=== PATIENT | male | born 1940 | race Caucasian/White ===

== ENCOUNTER 2019-11-09 16:43 | Inpatient (IN) | payer OTHER, BC ==
--- NOTE | 2019-11-09 17:03 | PDOC ---
Rapid Medical Evaluation Chief Complaint: CVA/TIA Medical Evaluation: Allergies Allergy/AdvReac Type Severity Reaction Status Date / Time No Known Allergies Allergy Verified 11/09/19 16:54 11/09/19 17:01 Pt c/o : on coumadin, hit head last week, today was not speaking clearly on phone, hx dm did not eat x 1 day, took bgm before coming but after eating a pop tart, slight headache now Pt on brief exam: vss, a o x3 Pt ordered for : labs, urine, head ct Pt to proceed to the ED 11/09/19 17:03 Discharge Disposition - Diagnosis Head injury - Referrals - Patient Instructions - Post Discharge Activity
--- NOTE | 2019-11-09 18:08 | PDOC ---
History of Present Illness - General Chief Complaint: CVA/TIA Stated Complaint: SENT BY PCP Time Seen by Provider: 11/09/19 17:39 History Source: Patient Exam Limitations: No Limitations - History of Present Illness Initial Comments: 11/09/19 18:03 79 yo M PMH HTN, HLD, NIDDM, DVT 10 years ago on coumadin (last checked 2019), TAVR 2 years ago, BPH, presenting after episode of aphasia. 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 Episode began around 1300 and lasted approximately 10 minutes. Patient now completely back to baseline. Notes that patient tripped and fell one week ago, hit head, no LOC, did not get any workup at that time. Him Assistant is Dr. Dhruv Haines. PCP is Dr. Flynn Beverly. Patient with multiple other chronic complaints: sciatica down L leg for 3 weeks , mild intermittent 3/10 headache, diarrhea yesterday. Past History - Past Medical History Allergies/Adverse Reactions: Allergies Allergy/AdvReac Type Severity Reaction Status Date / Time No Known Allergies Allergy Verified 11/09/19 16:54 Home Medications: Ambulatory Orders Finasteride 5 mg PO DAILY 11/09/19 Furosemide [Lasix -] 20 mg PO DAILY 11/09/19 Lisinopril [Prinivil -] 40 mg PO DAILY 11/09/19 Montelukast Na [Singulair -] 10 mg PO DAILY 11/09/19 Pantoprazole Sodium 40 mg PO DAILY 11/09/19 Pantoprazole Sodium [Protonix -] 40 mg PO DAILY 11/09/19 Rosuvastatin Calcium 5 mg PO DAILY 11/09/19 Ubidecarenone [Coq-10] 100 mg PO DAILY 11/09/19 Warfarin Sodium [Coumadin] 6 mg PO DAILY 11/09/19 metFORMIN HCL [Metformin ER Osmotic] 1,000 mg PO DAILY 11/09/19 Cardiac Disorders: Yes (TAVER Valve) COPD: No Diabetes: Yes HTN: Yes Hypercholesterolemia: Yes - Surgical History Cardiac Surgery: Yes - Psycho Social/Smoking Cessation Hx Smoking History: Former smoker Have you smoked in the past 12 months: No Information on smoking cessation initiated: No Hx Alcohol Use: No Drug/Substance Use Hx: No Review of Systems - Review of Systems Comments:: 11/09/19 18:07 GENERAL/CONSTITUTIONAL: denies fever, chills, diaphoresis, generalized weakness , malaise, loss of appetite, weight change HEAD, EYES, EARS, NOSE AND THROAT: denies rhinorrhea, nasal congestion, throat pain, throat swelling, difficulty swallowing, mouth swelling, ear pain, eye pain , visual changes NEUROLOGIC: endorses mild 3/10 headache and episode of aphasia, now resolved. Denies focal weakness or paresthesias, dizziness, unsteady gait, seizure, mental status changes, bladder or bowel incontinence CARDIOVASCULAR: denies chest pain, syncope, palpitations, irregular heart rate, lightheadedness, peripheral edema RESPIRATORY: denies cough, shortness of breath, dyspnea with exertion, orthopnea , wheezing, stridor, hemoptysis GASTROINTESTINAL: endorses one episode of diarrhea yesterday. Denies abdominal pain, abdominal distension, nausea, vomiting, constipation, melena, hematochezia GENITOURINARY: denies dysuria, frequency, urgency, hesitancy, hematuria, flank pain, genital pain MUSCULOSKELETAL: denies myalgia, arthralgia, joint swelling, back pain, neck pain SKIN: denies rash, itching, pallor HEMATOLOGIC/IMMUNOLOGIC: denies easy bleeding, easy bruising, lymphadenopathy, frequent infections ENDOCRINE: denies unexplained weight gain, unexplained weight loss, heat intolerance, cold intolerance PSYCHIATRIC: denies anxiety, depression, suicidal or homicidal ideation, hallucinations. *Physical Exam - Vital Signs Last Vital Signs Temp Pulse Resp BP Pulse Ox 97.7 F 88 18 172/89 H 95 11/09/19 16:57 11/09/19 16:57 11/09/19 16:57 11/09/19 16:57 11/09/19 16:57 - Physical Exam 11/09/19 18:08 GENERAL: Awake, alert, and fully oriented, in no acute distress. HEAD: Normal with no signs of trauma. EYES: Pupils equal, round and reactive to light, extraocular movements intact, sclera anicteric, conjunctiva clear. No lid lag. EARS, NOSE, THROAT: Ears normal, nares patent, oropharynx clear without exudates NECK: Normal range of motion, supple without lymphadenopathy, JVD, or masses. LUNGS: Breath sounds equal, clear to auscultation bilaterally. No wheezes, and no crackles. No accessory muscle use. HEART: Regular rate and rhythm, normal S1 and S2 without murmur, rub or gallop. ABDOMEN: Soft, nontender, non-distended, normoactive bowel sounds, negative guarding, negative rebound, no masses. MUSCULOSKELETAL: Normal range of motion at all joints. No bony deformities or tenderness. No CVA tenderness. UPPER EXTREMITIES: 2+ pulses, warm, well-perfused. No cyanosis. No clubbing. Cap refill <2 seconds. No peripheral edema. LOWER EXTREMITIES: 2+ pulses, warm, well-perfused. No calf tenderness. No peripheral edema. NEUROLOGICAL: Cranial nerves II-XII intact, 5/5 strength, SILT in all extremities, FTN intact. Normal speech. PSYCHIATRIC: Cooperative. Good eye contact. Appropriate mood and affect. SKIN: Warm, dry, normal turgor, no rashes or lesions noted. Critical Care Time/MDM Note - Medical Decision Making Note: 11/09/19 18:10 Concern for potential TIA v ICH. - CT head - CBC, CMP - EKG, trop - CXR - coags - admit 11/09/19 18:25 EKG normal sinus at 72 bpm. Poor baseline quality. T wave inversions in 1, AVL, V5-V6. We do not have prior EKGs. 11/09/19 19:14 CXR with poor inspiratory effort, L base atelectasis, R infrahilar nodularity v mass. Discussed CXR results with patient, who states that he has known about the nodule for at least a year and it has been followed by his PCP. Will get CT chest to better characterize, admit for TIA. 11/09/19 19:[address] Abreu, who recommends admission for MRI and lipid panel tests. Discharge - Discharge Information Problems reviewed: Yes Clinical Impression/Diagnosis: Transient ischemic attack - Follow up/Referral - Patient Discharge Instructions - Post Discharge Activity
[2019-11-09 18:26] LABS: BASO % 1.2 % (0-2.0); HEMATOCRIT 37.7 % (35.4-49); HEMOGLOBIN 12.6 GM/dL (11.7-16.9); LYMPH % 23.6 % (8-40); MCH 28.5 pg (25.7-33.7); MCHC 33.3 g/dl (32.0-35.9); MEAN CELL VOLUME 85.6 fl (80-96); MEAN PLT VOLUME 8.8 fl (7.5-11.1); MONO % 9.2 % (3.8-10.2); PLATELET COUNT 235 K/MM3 (134-434); RBC 4.41 M/mm3 (4.00-5.60); WHITE BLOOD COUNT 7.8 K/mm3 (4.0-10.0)
[2019-11-09 18:41] LABS: INR 1.91 (0.83-1.09); PROTHROMBIN TIME (PATIENT) 22.7 SEC (9.7-13.0)
--- NOTE | 2019-11-09 18:54 | PDOC ---
Attending Attestation - Resident Resident Name: Samuel Sun - ED Attending Attestation I have performed the following: I have examined & evaluated the patient, The case was reviewed & discussed with the resident, I agree w/resident's findings & plan, Exceptions are as noted - HPI HPI: 11/09/19 19:00 79 yo male h/o prior dvt, obesity htn hld dm here with tia like sxs. pt was call his doctor to set up appoitnment with pain management and suddently developed slurred speech. pt states lasted only few minutes, then back to baseline. called his daughter who told to come to ED. called pcp. who set up appointment for nuerology but recommended ed evaluation. no ann . did have fall were he was working on a boat recently fell backward january of hit his head. does have sciatica, chronic back pain but no new weakness currently. no cp no sob. - Physicial Exam PE: 11/09/19 19:02 awake alert lungs clear bilat heart rrr no mrg abd soft nt nd ext wwp no edema. no calf tenderness. alert oriented x 3. speech clear. CN II - XII intact. 5/5 all four ext. NIH stroke scale zero. - Medical Decision Making 11/09/19 19:03 79 yo male mult med problesm here with c/o slurred speech, lasted only brief period, now at baseline. concerning for TIA plan ct head. r/o ich as recent trauma. labs ekg . pt currently on coumadin. likley admit to telemetry Heart Score/ECG Review #1 General ECG Interpretation: Sinus Rhythm, Normal Rate (72), Normal Intervals, No acute ischemic changes Compared to previous ECG there are: Previous ECG unavail (TWI I, AVL, V5 - V6) NIH Stroke Scale - Initial Evaluation Level of consciousness: Alert Ask patient the month and their age: Answers both correctly Ask patient to open & close eyes; make fist and let go: Obeys both correctly Best gaze (horizontal eye movement): Normal Visual field testing: No visual field loss Facial paresis (Show teeth/raise eyebrows/close eyes tight): Normal symmetrical movement Motor Function: Left Arm: Normal Motor Function: Right Arm: Normal (extends arm 90 (or 45) degrees for 10 seconds without drift Motor Function: Left Leg: Normal (extends leg 30 degrees for 5 seconds without drift) Motor Function: Right Leg: Normal (extends leg 30 degrees for 5 seconds without drift) Limb Ataxia: No ataxia Sensory(Use pinprick test arms,legs,trunk,face/side to side): Normal Best language (Describe picture, name items, read sentences): No Aphasia Dysarthria (read several words): Normal articulation Extinction and Inattention: No abnormality - Total Score NIH Stroke Scale Score: 0
[2019-11-09 18:58] LABS: ALBUMIN 3.8 g/dl (3.4-5.0); ALK PHOS 62 U/L (45-117); ANION GAP 6 MMOL/L (8-16); BILIRUBIN,TOTAL 0.3 mg/dL (0.2-1); BLOOD UREA NITROGEN 18.7 mg/dL (7-18); CALCIUM 8.9 mg/dL (8.5-10.1); CHLORIDE 108 mmol/L (98-107); CO2 27 mmol/L (21-32); CREATININE 1.4 mg/dL (0.55-1.3); GLUCOSE,RANDOM 130 mg/dL (74-106); POTASSIUM 3.8 mmol/L (3.5-5.1); SGOT/AST 15 U/L (15-37); SGPT/ALT 19 U/L (13-61); SODIUM 142 mmol/L (136-145); TOT PROT 6.7 g/dl (6.4-8.2)
[2019-11-09 20:11] LABS: URINE APPEARANCE CLEAR; URINE BILIRUBIN NEGATIVE (NEGATIVE); URINE COLOR YELLOW; URINE GLUCOSE (UA) NEGATIVE (NEGATIVE); URINE KETONE NEGATIVE (NEGATIVE); URINE LEUK ESTERASE NEGATIVE (NEGATIVE); URINE NITRITE NEGATIVE (NEGATIVE); URINE PROTEIN NEGATIVE (NEGATIVE); URINE UROBILINOGEN 0.2 mg/dL (0.2-1.0)
[2019-11-09] MEDS ORDERED: ASPIRIN 81 MG CHEWABLE TABLETS PO STA (21:01)
[2019-11-09] MEDS ORDERED: ATORVASTATIN CA 80 MG TABLET (FP) PO STA (21:46)
--- NOTE | 2019-11-09 21:52 | HP ---
<Lilly Bryant - Last Filed: 11/09/19 21:52> CHIEF COMPLAINT: dysarthria PCP: Physician @ [facility] HISTORY OF PRESENT ILLNESS: 79 y.o. M PMH HTN, HLD, DM2, DVT history 10 years ago (has been on coumadin since tis time), BPH, TAVR presenting s/p 10 minute episode of aphasia. The patient states this afternoon he was having severe sciatic pain which prompted him to call his PCP. While on the phone he became dysarthric w/ expressive aphasia--altered ability to produce language but clear comprehension. Although his dysarthria resolved he decided to come to the ED. On arrival to ED the patient is feeling well, no dysarthria, but forgetful of some words ( at bedside, says this is altered from his usual). NIHSS 1, for L lateral gaze deficit. The patient is compliant with all mediations and checks his INR weekly with home device. ER course was notable for: (1) EKG showing T wave inversions lead I, AVL, V5, V6 (2) CT head negative (3) Hypertensive 172/89 Recent Travel: denies PAST MEDICAL HISTORY: as per hpi PAST SURGICAL HISTORY: TAVR, b/l cataract surgery Social History: Smoking: quit 30 yrs ago Alcohol: denies Drugs: denies Allergies No Known Allergies Allergy (Verified 11/09/19 16:54) Family hx: diabetes in both parents HOME MEDICATIONS: Home Medications Medication Instructions Recorded Finasteride 5 mg PO DAILY 11/09/19 Furosemide [Lasix -] 20 mg PO DAILY 11/09/19 Lisinopril [Prinivil -] 40 mg PO DAILY 11/09/19 Montelukast Na [Singulair -] 10 mg PO DAILY 11/09/19 Pantoprazole Sodium 40 mg PO DAILY 11/09/19 Pantoprazole Sodium [Protonix -] 40 mg PO DAILY 11/09/19 Rosuvastatin Calcium 5 mg PO DAILY 11/09/19 Ubidecarenone [Coq-10] 100 mg PO DAILY 11/09/19 Warfarin Sodium [Coumadin] 6 mg PO DAILY 11/09/19 metFORMIN HCL [Metformin ER 1,000 mg PO DAILY 11/09/19 Osmotic] REVIEW OF SYSTEMS CONSTITUTIONAL: Absent: fever, chills, diaphoresis, generalized weakness, malaise, loss of appetite, weight change HEENT: Absent: rhinorrhea, nasal congestion, throat pain, throat swelling, difficulty swallowing, mouth swelling, ear pain, eye pain, visual changes CARDIOVASCULAR: Absent: chest pain, syncope, palpitations, irregular heart rate, lightheadedness , peripheral edema RESPIRATORY: Absent: cough, shortness of breath, dyspnea with exertion, orthopnea, wheezing, stridor, hemoptysis GASTROINTESTINAL: Absent: abdominal pain, abdominal distension, nausea, vomiting, diarrhea, constipation, melena, hematochezia GENITOURINARY: Absent: dysuria, frequency, urgency, hesitancy, hematuria, flank pain, genital pain MUSCULOSKELETAL: Absent: myalgia, arthralgia, joint swelling, back pain, neck pain SKIN: Absent: rash, itching, pallor HEMATOLOGIC/IMMUNOLOGIC: Absent: easy bleeding, easy bruising, lymphadenopathy, frequent infections ENDOCRINE: Absent: unexplained weight gain, unexplained weight loss, heat intolerance, cold intolerance NEUROLOGIC: Absent: headache, focal weakness or paresthesias, dizziness, unsteady gait, seizure, mental status changes, bladder or bowel incontinence PSYCHIATRIC: Absent: anxiety, depression, suicidal or homicidal ideation, hallucinations. PHYSICAL EXAMINATION Vital Signs - 24 hr 11/09/19 11/09/19 16:57 20:14 Temperature 97.7 F Pulse Rate 88 Respiratory 18 20 Rate Blood Pressure 172/89 H Blood Pressure 163/117 H [Left Arm] O2 Sat by Pulse 95 95 Oximetry (%) GENERAL: Awake, alert, and fully oriented, in no acute distress. HEENT: NCAT. No JVD. Sclera anicteric. LUNGS: Breath sounds equal, clear to auscultation bilaterally. No wheezes, and no crackles. No accessory muscle use. HEART: Regular rate and rhythm, normal S1 and S2 without murmurs. No carotid bruits. ABDOMEN: Soft, nontender, not distended, normoactive bowel sounds. EXTREMITIES: 2+ pulses, warm, well-perfused. No peripheral edema. NEUROLOGICAL: Cranial nerves II-XII intact. Good handgrip strength. Motor 5/5 b /l UE & LE. Sensory intact b/l UE & LE. PSYCHIATRIC: Cooperative. Good eye contact. Appropriate mood and affect. SKIN: Warm, dry, normal turgor. Laboratory Results - last 24 hr Laboratory Last Values WBC 7.8 K/mm3 (4.0-10.0) 11/09/19 18:00 RBC 4.41 M/mm3 (4.00-5.60) 11/09/19 18:00 Hgb 12.6 GM/dL (11.7-16.9) 11/09/19 18:00 Hct 37.7 % (35.4-49) 11/09/19 18:00 MCV 85.6 fl (80-96) 11/09/19 18:00 MCH 28.5 pg (25.7-33.7) 11/09/19 18:00 MCHC 33.3 g/dl (32.0-35.9) 11/09/19 18:00 RDW 14.0 % (11.9-15.9) 11/09/19 18:00 Plt Count 235 K/MM3 (134-434) 11/09/19 18:00 MPV 8.8 fl (7.5-11.1) 11/09/19 18:00 Absolute Neuts (auto) 4.9 K/mm3 (1.5-8.0) 11/09/19 18:00 Neutrophils % 62.0 % (42.8-82.8) 11/09/19 18:00 Lymphocytes % 23.6 % (8-40) 11/09/19 18:00 Monocytes % 9.2 % (3.8-10.2) 11/09/19 18:00 Eosinophils % 4.0 % (0-4.5) 11/09/19 18:00 Basophils % 1.2 % (0-2.0) 11/09/19 18:00 Nucleated RBC % 0 % (0-0) 11/09/19 18:00 PT with INR 22.70 SEC (9.7-13.0) H 11/09/19 18:00 INR 1.91 (0.83-1.09) H 11/09/19 18:00 Sodium 142 mmol/L (136-145) 11/09/19 18:00 Potassium 3.8 mmol/L (3.5-5.1) 11/09/19 18:00 Chloride 108 mmol/L (98-107) H 11/09/19 18:00 Carbon Dioxide 27 mmol/L (21-32) 11/09/19 18:00 Anion Gap 6 MMOL/L (8-16) L 11/09/19 18:00 BUN 18.7 mg/dL (7-18) H 11/09/19 18:00 Creatinine 1.4 mg/dL (0.55-1.3) H 11/09/19 18:00 Est GFR (CKD-EPI)AfAm 54.61 11/09/19 18:00 Est GFR (CKD-EPI)NonAf 47.12 11/09/19 18:00 Random Glucose 130 mg/dL (74-106) H 11/09/19 18:00 Calcium 8.9 mg/dL (8.5-10.1) 11/09/19 18:00 Total Bilirubin 0.3 mg/dL (0.2-1) 11/09/19 18:00 AST 15 U/L (15-37) 11/09/19 18:00 ALT 19 U/L (13-61) 11/09/19 18:00 Alkaline Phosphatase 62 U/L (45-117) 11/09/19 18:00 Creatine Kinase 86 U/L (26-308) 11/09/19 18:00 Troponin I < 0.02 ng/ml (0.00-0.05) 11/09/19 18:00 Total Protein 6.7 g/dl (6.4-8.2) 11/09/19 18:00 Albumin 3.8 g/dl (3.4-5.0) 11/09/19 18:00 Urine Color Yellow 11/09/19 19:10 Urine Appearance Clear 11/09/19 19:10 Urine pH 5.0 (5.0-8.0) 11/09/19 19:10 Ur Specific Jackson 1.015 (1.010-1.035) 11/09/19 19:10 Urine Protein Negative (NEGATIVE) 11/09/19 19:10 Urine Glucose (UA) Negative (NEGATIVE) 11/09/19 19:10 Urine Ketones Negative (NEGATIVE) 11/09/19 19:10 Urine Blood Negative (NEGATIVE) 11/09/19 19:10 Urine Nitrite Negative (NEGATIVE) 11/09/19 19:10 Urine Bilirubin Negative (NEGATIVE) 11/09/19 19:10 Urine Urobilinogen 0.2 mg/dL (0.2-1.0) 11/09/19 19:10 Ur Leukocyte Esterase Negative (NEGATIVE) 11/09/19 19:10 ASSESSMENT/PLAN: 79 y.o. M PMH HTN, HLD, DM2, DVT history 10 years ago (has been on coumadin since tis time), BPH, TAVR presenting for TIA. #TIA -CT head shows no ischemic changes -f/u MRI brain w/o contrast -allow permissive HTN-- holding home anti HTN meds -f/u carotid duplex -Patient had recent echo 3 months ago at cardiologists office @ [facility]-- f/u records -Neurology consulted, Dr. Abreu -ASA 81mg, patient is on coumadin -high intensity statin -trend trops, neg x1 -speech & swallow eval -physical therapy requested #HTN -holding home anti HTN meds -monitor BP, allow permissive htn #HLD -holding home statin -starting atorvastatin 80mg daily -advised low fat diet -pinking machine operator consulted #Diabetes mellitus 2 -holding home oral agents -ISS -BGMs ACHS #BPH -continue home finasteride #PPX -DVT: on coumadin 6mg daily, INR today 1.91 -GI: protonix 40mg daily #FEN -no standing fluids -trend lytes replete prn -sodium controlled, low fat diet #Dispo -admit to stroke unit ATTENDING PHYSICIAN STATEMENT I saw and evaluated the patient. I reviewed the resident's note and discussed the case with the resident. I agree with the resident's findings and plan as documented. SUBJECTIVE: OBJECTIVE: ASSESSMENT AND PLAN: <Brad Bates - Last Filed: 11/09/19 23:12> CHIEF COMPLAINT: PCP: HISTORY OF PRESENT ILLNESS: ER course was notable for: (1) (2) (3) Recent Travel: PAST MEDICAL HISTORY: PAST SURGICAL HISTORY: Social History: Smoking: Alcohol: Drugs: Allergies No Known Allergies Allergy (Verified 11/09/19 16:54) HOME MEDICATIONS: Home Medications Medication Instructions Recorded Finasteride 5 mg PO DAILY 11/09/19 Furosemide [Lasix -] 20 mg PO DAILY 11/09/19 Lisinopril [Prinivil -] 40 mg PO DAILY 11/09/19 Montelukast Na [Singulair -] 10 mg PO DAILY 11/09/19 Pantoprazole Sodium 40 mg PO DAILY 11/09/19 Pantoprazole Sodium [Protonix -] 40 mg PO DAILY 11/09/19 Rosuvastatin Calcium 5 mg PO DAILY 11/09/19 Ubidecarenone [Coq-10] 100 mg PO DAILY 11/09/19 Warfarin Sodium [Coumadin] 6 mg PO DAILY 11/09/19 metFORMIN HCL [Metformin ER 1,000 mg PO DAILY 11/09/19 Osmotic] REVIEW OF SYSTEMS CONSTITUTIONAL: Absent: fever, chills, diaphoresis, generalized weakness, malaise, loss of appetite, weight change HEENT: Absent: rhinorrhea, nasal congestion, throat pain, throat swelling, difficulty swallowing, mouth swelling, ear pain, eye pain, visual changes CARDIOVASCULAR: Absent: chest pain, syncope, palpitations, irregular heart rate, lightheadedness , peripheral edema RESPIRATORY: Absent: cough, shortness of breath, dyspnea with exertion, orthopnea, wheezing, stridor, hemoptysis GASTROINTESTINAL: Absent: abdominal pain, abdominal distension, nausea, vomiting, diarrhea, constipation, melena, hematochezia GENITOURINARY: Absent: dysuria, frequency, urgency, hesitancy, hematuria, flank pain, genital pain MUSCULOSKELETAL: Absent: myalgia, arthralgia, joint swelling, back pain, neck pain SKIN: Absent: rash, itching, pallor HEMATOLOGIC/IMMUNOLOGIC: Absent: easy bleeding, easy bruising, lymphadenopathy, frequent infections ENDOCRINE: Absent: unexplained weight gain, unexplained weight loss, heat intolerance, cold intolerance NEUROLOGIC: Absent: headache, focal weakness or paresthesias, dizziness, unsteady gait, seizure, mental status changes, bladder or bowel incontinence PSYCHIATRIC: Absent: anxiety, depression, suicidal or homicidal ideation, hallucinations. PHYSICAL EXAMINATION Vital Signs - 24 hr 11/09/19 11/09/19 16:57 20:14 Temperature 97.7 F Pulse Rate 88 Respiratory 18 20 Rate Blood Pressure 172/89 H Blood Pressure 163/117 H [Left Arm] O2 Sat by Pulse 95 95 Oximetry (%) GENERAL: Awake, alert, and fully oriented, in no acute distress. HEAD: Normal with no signs of trauma. EYES: Pupils equal, round and reactive to light, extraocular movements intact, sclera anicteric, conjunctiva clear. No lid lag. EARS, NOSE, THROAT: Ears normal, nares patent, oropharynx clear without exudates. Moist mucous membranes. NECK: Normal range of motion, supple without lymphadenopathy, JVD, or masses. LUNGS: Breath sounds equal, clear to auscultation bilaterally. No wheezes, and no crackles. No accessory muscle use. HEART: Regular rate and rhythm, normal S1 and S2 without murmur, rub or gallop. ABDOMEN: Soft, nontender, not distended, normoactive bowel sounds, no guarding, no rebound, no masses. No hepatomegaly or splenomegaly. MUSCULOSKELETAL: Normal range of motion at all joints. No bony deformities or tenderness. No CVA tenderness. UPPER EXTREMITIES: 2+ pulses, warm, well-perfused. No cyanosis. No clubbing. No peripheral edema. LOWER EXTREMITIES: 2+ pulses, warm, well-perfused. No calf tenderness. No peripheral edema. NEUROLOGICAL: Cranial nerves II-XII intact. Normal speech. Normal gait. PSYCHIATRIC: Cooperative. Good eye contact. Appropriate mood and affect. SKIN: Warm, dry, normal turgor, no rashes or lesions noted, normal capillary refill. Laboratory Results - last 24 hr 11/09/19 11/09/19 11/09/19 18:00 18:00 18:00 WBC 7.8 RBC 4.41 Hgb 12.6 Hct 37.7 MCV 85.6 MCH 28.5 MCHC 33.3 RDW 14.0 Plt Count 235 MPV 8.8 Absolute Neuts (auto) 4.9 Neutrophils % 62.0 Lymphocytes % 23.6 Monocytes % 9.2 Eosinophils % 4.0 Basophils % 1.2 Nucleated RBC % 0 PT with INR 22.70 H INR 1.91 H Sodium 142 Potassium 3.8 Chloride 108 H Carbon Dioxide 27 Anion Gap 6 L BUN 18.7 H Creatinine 1.4 H Est GFR (CKD-EPI)AfAm 54.61 Est GFR (CKD-EPI)NonAf 47.12 POC Glucometer Random Glucose 130 H Calcium 8.9 Total Bilirubin 0.3 AST 15 ALT 19 Alkaline Phosphatase 62 Creatine Kinase 86 Troponin I < 0.02 Total Protein 6.7 Albumin 3.8 Urine Color Urine Appearance Urine pH Ur Specific Jackson Urine Protein Urine Glucose (UA) Urine Ketones Urine Blood Urine Nitrite Urine Bilirubin Urine Urobilinogen Ur Leukocyte Esterase 11/09/19 11/09/19 19:10 22:43 WBC RBC Hgb Hct MCV MCH MCHC RDW Plt Count MPV Absolute Neuts (auto) Neutrophils % Lymphocytes % Monocytes % Eosinophils % Basophils % Nucleated RBC % PT with INR INR Sodium Potassium Chloride Carbon Dioxide Anion Gap BUN Creatinine Est GFR (CKD-EPI)AfAm Est GFR (CKD-EPI)NonAf POC Glucometer 112 Random Glucose Calcium Total Bilirubin AST ALT Alkaline Phosphatase Creatine Kinase Troponin I Total Protein Albumin Urine Color Yellow Urine Appearance Clear Urine pH 5.0 Ur Specific Jackson 1.015 Urine Protein Negative Urine Glucose (UA) Negative Urine Ketones Negative Urine Blood Negative Urine Nitrite Negative Urine Bilirubin Negative Urine Urobilinogen 0.2 Ur Leukocyte Esterase Negative ASSESSMENT/PLAN: Visit type - Emergency Visit Emergency Visit: Yes ED Registration Date: 11/09/19 Care time: The patient presented to the Emergency Department on the above date and was hospitalized for further evaluation of their emergent condition. - New Patient This patient is new to me today: Yes Date on this admission: 11/09/19 - Critical Care Critical Care patient: No ATTENDING PHYSICIAN STATEMENT I saw and evaluated the patient with resident staff I reviewed the resident's note and discussed the case with the resident. I agree with the resident's findings and plan as documented. SUBJECTIVE: 79 y.o. M PMH HTN, HLD, DM2, DVT on coumadin, BPH, TAVR presented to ED with slurred speech and aphasia which lasted for 10 minutes. He was talking to his PCP over the phone and all of a sudden his speech became slurred and became aphasic. also noticed his symptoms. His PCP recommended to go to ED for further evaluation. He denies chest pain, SOB, nausea,vomiting, fever. OBJECTIVE: Vital Signs - 24 hr 11/09/19 11/09/19 16:57 20:14 Temperature 97.7 F Pulse Rate 88 Respiratory 18 20 Rate Blood Pressure 172/89 H Blood Pressure 163/117 H [Left Arm] O2 Sat by Pulse 95 95 Oximetry (%) GENERAL: Normal built, NAD HEENT: NCAT, EOMI, MEGAN, Sclera, conjunctiva normal LUNGS: Breath sounds equal,, b/l cleat HEART: RRR, s1s2+, No MRG ABDOMEN: Soft, nontender, not distended, +BS EXTREMITIES: 2+ pulses, warm, well-perfused. No peripheral edema. NEUROLOGICAL: Cranial nerves II-XII intact. Good handgrip strength. Motor 5/5 b /l UE & LE. Sensory intact b/l UE & LE. SKIN: Warm, dry, normal turgor. ASSESSMENT AND PLAN: TIA r/o stroke Admit to stroke unit MRA in AM Carotid Duplex Neurology was consulted by ED over the phone. official consult in Am HTN- uncontrolled. Hold BP meds for now. Allow permissive HTN Resume home meds including Coumadin ECHO as per MRI as it was done recently 3 months ago trend 1 more troponin. Rest of the plan as per resident's note dictated by me Brad Bates MD 11/09/2019
[2019-11-09] MEDS ORDERED: ATORVASTATIN CA 80 MG TABLET (FP) ONE (21:56)
[2019-11-09] MEDS ORDERED: ASPIRIN 81 MG CHEWABLE TABLETS ONE (21:56)
--- NOTE | 2019-11-09 22:40 | PN.NIHSS ---
NIH Stroke Scale - Initial Evaluation Level of consciousness: Alert Ask patient the month and their age: Answers both correctly Ask patient to open & close eyes; make fist and let go: Obeys both correctly Best gaze (horizontal eye movement): Partial gaze palsy Visual field testing: No visual field loss Facial paresis (Show teeth/raise eyebrows/close eyes tight): Normal symmetrical movement Motor Function: Left Arm: Normal Motor Function: Right Arm: Normal (extends arm 90 (or 45) degrees for 10 seconds without drift Motor Function: Left Leg: Normal (extends leg 30 degrees for 5 seconds without drift) Motor Function: Right Leg: Normal (extends leg 30 degrees for 5 seconds without drift) Limb Ataxia: No ataxia Sensory(Use pinprick test arms,legs,trunk,face/side to side): Normal Best language (Describe picture, name items, read sentences): No Aphasia Dysarthria (read several words): Normal articulation Extinction and Inattention: No abnormality - Total Score NIH Stroke Scale Score: 1
[2019-11-09] MEDS: INSULIN SLIDING SCALE (NOVOLOG) 1 VIAL SQ SCH (22:49)
[2019-11-10] MEDS ORDERED: INSULIN (NOVOLOG) ASPART 100 UNITS/ML 10ML VIAL ONE (05:57)
[2019-11-10] MEDS: INSULIN SLIDING SCALE (NOVOLOG) 1 VIAL SQ SCH ×4 (06:00→22:03)
[2019-11-10 07:39] LABS: INR 2.04 (0.83-1.09); PROTHROMBIN TIME (PATIENT) 24.3 SEC (9.7-13.0)
[2019-11-10 08:07] LABS: BASO % 1.1 % (0-2.0); EOS % 3.6 % (0-4.5); HEMATOCRIT 38.2 % (35.4-49); HEMOGLOBIN 12.8 GM/dL (11.7-16.9); LYMPH % 21.8 % (8-40); MCH 28.8 pg (25.7-33.7); MCHC 33.6 g/dl (32.0-35.9); MEAN CELL VOLUME 85.7 fl (80-96); MEAN PLT VOLUME 8.8 fl (7.5-11.1); MONO % 7.9 % (3.8-10.2); NEUT % 65.6 % (42.8-82.8); PLATELET COUNT 232 K/MM3 (134-434); RBC 4.46 M/mm3 (4.00-5.60); RDW 13.9 % (11.9-15.9); WHITE BLOOD COUNT 7.8 K/mm3 (4.0-10.0)
--- NOTE | 2019-11-10 09:12 | PN ---
Progress Note (short form) - Note Progress Note: Neurology CHIEF COMPLAINT: dysarthria PCP: Physician @ [facility] HISTORY OF PRESENT ILLNESS: 79 y.o. M PMH HTN, HLD, DM2, DVT history 10 years ago (has been on coumadin since tis time), BPH, TAVR presented s/p 10 minute episode of aphasia. The patient stated on day of admission he was having severe sciatic pain which prompted him to call his PCP. While on the phone he became dysarthric w/ expressive aphasia--altered ability to produce language but clear comprehension. Although his dysarthria resolved he decided to come to the ED. On arrival to ED the patient was feeling well, no dysarthria, but forgetful of some words ( at bedside, said this is altered from his usual). NIHSS 1, for L lateral gaze deficit. The patient is compliant with all mediations and checks his INR weekly with home device. Head CT performed and showed no acute pathology. Carotid Ultrasound completed and demonstrated no evidence of carotid artery stenosis. MRI of brain reviewed and showed no evidence of acute or subacute infarction. 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 Discussed this in detail with patient and his daughter who is at bedside. He does not take a daily aspirin but is on anticoagulation. I be hesitant to add antiplatelet to his regimen at this point since he did not have a new infarct and is already on anticoagulation with increased risk of bleeding. Lipid profile reviewed, LDL 89, remains on low-dose statin. They were reassured that MRI was negative and that his speech is back to baseline. discussed stroke risk factor management and optimization. Recent Travel: denies PAST MEDICAL HISTORY: as per hpi PAST SURGICAL HISTORY: TAVR, b/l cataract surgery Family History: Diabetes in both parents Social History: Smoking: quit 30 yrs ago Alcohol: denies Drugs: denies REVIEW OF SYSTEMS CONSTITUTIONAL: Absent: fever, chills, diaphoresis, generalized weakness, malaise, loss of appetite, weight change HEENT: Absent: rhinorrhea, nasal congestion, throat pain, throat swelling, difficulty swallowing, mouth swelling, ear pain, eye pain, visual changes CARDIOVASCULAR: Absent: chest pain, syncope, palpitations, irregular heart rate, lightheadedness , peripheral edema RESPIRATORY: Absent: cough, shortness of breath, dyspnea with exertion, orthopnea, wheezing, stridor, hemoptysis GASTROINTESTINAL: Absent: abdominal pain, abdominal distension, nausea, vomiting, diarrhea, constipation, melena, hematochezia GENITOURINARY: Absent: dysuria, frequency, urgency, hesitancy, hematuria, flank pain, genital pain MUSCULOSKELETAL: Absent: myalgia, arthralgia, joint swelling, back pain, neck pain SKIN: Absent: rash, itching, pallor HEMATOLOGIC/IMMUNOLOGIC: Absent: easy bleeding, easy bruising, lymphadenopathy, frequent infections ENDOCRINE: Absent: unexplained weight gain, unexplained weight loss, heat intolerance, cold intolerance NEUROLOGIC: Absent: headache, focal weakness or paresthesias, dizziness, unsteady gait, seizure, mental status changes, bladder or bowel incontinence PSYCHIATRIC: Absent: anxiety, depression, suicidal or homicidal ideation, hallucinations. Allergies No Known Allergies Allergy (Verified 11/09/19 16:54) HOME MEDICATIONS: Home Medications Medication Instructions Recorded Finasteride 5 mg PO DAILY 11/09/19 Furosemide [Lasix -] 20 mg PO DAILY 11/09/19 Lisinopril [Prinivil -] 40 mg PO DAILY 11/09/19 Montelukast Na [Singulair -] 10 mg PO DAILY 11/09/19 Pantoprazole Sodium 40 mg PO DAILY 11/09/19 Pantoprazole Sodium [Protonix -] 40 mg PO DAILY 11/09/19 Rosuvastatin Calcium 5 mg PO DAILY 11/09/19 Ubidecarenone [Coq-10] 100 mg PO DAILY 11/09/19 Warfarin Sodium [Coumadin] 6 mg PO DAILY 11/09/19 metFORMIN HCL [Metformin ER 1,000 mg PO DAILY 11/09/19 Osmotic] Active Medications Atorvastatin Calcium (Lipitor -) 80 mg PO HS [facility] Finasteride (Proscar -) 5 mg PO DAILY [facility] Furosemide (Lasix -) 20 mg PO DAILY [facility] Insulin Aspart (Novolog Vial Sliding Scale -) 1 vial SQ ACHS [facility]; Protocol Last Admin: 11/10/19 06:00 Dose: 2 units Montelukast Sodium (Singulair -) 10 mg PO HS [facility] Non-Formulary Medication (Ubidecarenone [Coq-10]) 100 mg PO DAILY [facility] Pantoprazole Sodium (Protonix -) 40 mg PO DAILY [facility] Warfarin Sodium (Coumadin -) 6 mg PO DAILY@1800 [facility] PHYSICAL EXAMINATION Vital Signs Period Temp Pulse Resp BP Sys/Puentes Pulse Ox Last 24 Hr 97.7 F-98.2 F 81-88 18-20 163-178/75-117 95-99 GENERAL: Awake, alert, and fully oriented, in no acute distress. HEENT: NCAT. No JVD. Sclera anicteric. LUNGS: Breath sounds equal, clear to auscultation bilaterally. No wheezes, and no crackles. No accessory muscle use. HEART: Regular rate and rhythm, normal S1 and S2 without murmurs. No carotid bruits. ABDOMEN: Soft, nontender, not distended, normoactive bowel sounds. EXTREMITIES: 2+ pulses, warm, well-perfused. No peripheral edema. NEUROLOGICAL: Cranial nerves II-XII intact.normal speech, no dysarthria or aphasia. Good handgrip strength. Motor 5/5 b/l UE & LE. Sensory intact b/l UE & LE. PSYCHIATRIC: Cooperative. Good eye contact. Appropriate mood and affect. SKIN: Warm, dry, normal turgor. CBCD WBC 7.8 K/mm3 (4.0-10.0) 11/10/19 05:30 RBC 4.46 M/mm3 (4.00-5.60) 11/10/19 05:30 Hgb 12.8 GM/dL (11.7-16.9) 11/10/19 05:30 Hct 38.2 % (35.4-49) 11/10/19 05:30 MCV 85.7 fl (80-96) 11/10/19 05:30 MCHC 33.6 g/dl (32.0-35.9) 11/10/19 05:30 RDW 13.9 % (11.9-15.9) 11/10/19 05:30 Plt Count 232 K/MM3 (134-434) 11/10/19 05:30 MPV 8.8 fl (7.5-11.1) 11/10/19 05:30 CMP Sodium 142 mmol/L (136-145) 11/09/19 18:00 Potassium 3.8 mmol/L (3.5-5.1) 11/09/19 18:00 Chloride 108 mmol/L (98-107) H 11/09/19 18:00 Carbon Dioxide 27 mmol/L (21-32) 11/09/19 18:00 Anion Gap 6 MMOL/L (8-16) L 11/09/19 18:00 BUN 18.7 mg/dL (7-18) H 11/09/19 18:00 Creatinine 1.4 mg/dL (0.55-1.3) H 11/09/19 18:00 Random Glucose 130 mg/dL (74-106) H 11/09/19 18:00 Calcium 8.9 mg/dL (8.5-10.1) 11/09/19 18:00 Total Bilirubin 0.3 mg/dL (0.2-1) 11/09/19 18:00 AST 15 U/L (15-37) 11/09/19 18:00 ALT 19 U/L (13-61) 11/09/19 18:00 Alkaline Phosphatase 62 U/L (45-117) 11/09/19 18:00 Total Protein 6.7 g/dl (6.4-8.2) 11/09/19 18:00 Albumin 3.8 g/dl (3.4-5.0) 11/09/19 18:00 CARDIAC ENZYMES Creatine Kinase 86 U/L (26-308) 11/09/19 18:00 Troponin I < 0.02 ng/ml (0.00-0.05) 11/09/19 18:00 ASSESSMENT/PLAN: 79 y.o. M PMH HTN, HLD, DM2, DVT history 10 years ago (has been on coumadin since tis time), BPH, TAVR presented s/p 10 minute episode of aphasia. The patient stated on day of admission he was having severe sciatic pain which prompted him to call his PCP. While on the phone he became dysarthric w/ expressive aphasia--altered ability to produce language but clear comprehension. Although his dysarthria resolved he decided to come to the ED. On arrival to ED the patient was feeling well, no dysarthria, but forgetful of some words ( at bedside, said this is altered from his usual). NIHSS 1, for L lateral gaze deficit. The patient is compliant with all mediations and checks his INR weekly with home device. Head CT performed and showed no acute pathology. Carotid Ultrasound completed and demonstrated no evidence of carotid artery stenosis. MRI of brain reviewed and showed no evidence of acute or subacute infarction. 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 Discussed this in detail with patient and his daughter who is at bedside. He does not take a daily aspirin but is on anticoagulation. I be hesitant to add antiplatelet to his regimen at this point since he did not have a new infarct and is already on anticoagulation with increased risk of bleeding. Lipid profile reviewed, LDL 89, remains on low-dose statin. They were reassured that MRI was negative and that his speech is back to baseline. discussed stroke risk factor management and optimization. monitor blood pressure , maintain less than 140/90 as outpatient. Take glycemic control discussed and recommended. Continue monitor lipid profile, continue statin, goal LDLless than 100 and ideally close to 70. Remains on anticoagulation for DVT, avoid falls or head trauma.
[2019-11-10 09:20] LABS: BILIRUBIN,TOTAL 0.6 mg/dL (0.2-1); BLOOD UREA NITROGEN 18.4 mg/dL (7-18); CALCIUM 9.2 mg/dL (8.5-10.1); CREATININE 1.3 mg/dL (0.55-1.3); POTASSIUM 3.8 mmol/L (3.5-5.1); TOT PROT 7.2 g/dl (6.4-8.2)
[2019-11-10] MEDS ORDERED: PATIENT'S OWN MEDICATION (NON-FORMULARY) (Ubidecarenone [Coq-10] 100 MG) PO SCH (10:00)
[2019-11-10] MEDS ORDERED: FUROSEMIDE 20 MG TABLET (FP) PO SCH (10:00)
[2019-11-10] MEDS: PANTOPRAZOLE 40 MG TABLET PO SCH (10:21)
[2019-11-10] MEDS: FINASTERIDE 5 MG TABLET (FP) PO SCH (10:21)
--- NOTE | 2019-11-10 13:11 | ECHO ---
Name: DESHAWN RODRIGUEZ Exam:Adult Echocardiogram Study Date: 11/10/2019 10:33 AM Age: 79 yrs Reason For Study: s/p stroke examine for thrombi or valvular disease MMode/2D Measurements & Calculations IVSd: 1.4 cm Ao root diam: 2.4 cm LVIDd: 3.1 cm LA dimension: 4.6 cm LVIDs: 2.2 cm LVPWd: 1.3 cm LVPWs: 1.5 cm EDV(Teich): 39.3 ml ESV(Teich): 15.7 ml LVOT diam: 2.1 cm LAV (MOD-bp): 97.9 ml RV S Moshe: 10.8 cm/sec Doppler Measurements & Calculations MV E max moshe: 83.9 cm/sec Ao V2 max: 241.7 cm/sec MV A max moshe: 143.8 cm/sec Ao max P.0 mmHg MV E/A: 0.58 Ao V2 mean: 199.6 cm/sec MV dec time: 0.19 sec Ao mean P.9 mmHg Ao V2 VTI: 49.8 cm EFRAIN(V,D): 1.8 cm2 LV V1 max P.5 mmHg PA V2 max: 110.1 cm/sec LV V1 max: 127.3 cm/sec PA max P.9 mmHg Med Peak E' Moshe: 4.2 cm/sec Med E/e': 19.8 Lat Peak E' Moshe: 7.4 cm/sec Lat E/e': 11.3 Procedure A complete two-dimensional transthoracic echocardiogram was performed (2D, M-mode, Doppler and color flow Doppler). Left Ventricle There is moderate concentric left ventricular hypertrophy. The left ventricular ejection fraction is normal. Ejection Fraction = 60-65%. The left ventricular wall motion is normal. Right Ventricle The right ventricle is normal in size and function. Atria Normal left and right atrial size and function. Mitral Valve There is mild mitral annular calcification. There is no mitral regurgitation noted. Tricuspid Valve No tricuspid regurgitation. Aortic Valve Mild valvular aortic stenosis. No aortic regurgitation is present. Pulmonic Valve Trace pulmonic valvular regurgitation. Great Vessels The aortic root is normal size. Pericardium/Pleura There is no pericardial effusion. Interpretation Summary There is moderate concentric left ventricular hypertrophy. Ejection Fraction = 60-65%. The right ventricle is normal in size and function. Mild valvular aortic stenosis. Trace pulmonic valvular regurgitation. MD Todd Mckeon 11/10/2019 01:11 PM
--- NOTE | 2019-11-10 15:15 | EKG ---
Test Reason : Blood Pressure : / mmHG Vent. Rate : 072 BPM Atrial Rate : 072 BPM P-R Int : 170 ms QRS Dur : 132 ms QT Int : 412 ms P-R-T Axes : 051 002 116 degrees QTc Int : 451 ms NORMAL SINUS RHYTHM NON-SPECIFIC INTRA-VENTRICULAR CONDUCTION BLOCK T WAVE ABNORMALITY, CONSIDER LATERAL ISCHEMIA ABNORMAL ECG WHEN COMPARED WITH ECG OF 02-AUG-2008 21:27, QRS DURATION HAS INCREASED ST NO LONGER ELEVATED IN ANTERIOR LEADS ST NOW DEPRESSED IN LATERAL LEADS NONSPECIFIC T WAVE ABNORMALITY NOW EVIDENT IN ANTERIOR LEADS Confirmed by CLARISA WORRELL MD ([id number]) on 11/10/2019 3:14:42 PM Referred By: Confirmed By:CLARISA WORRELL MD
--- NOTE | 2019-11-10 15:26 | PN ---
Physical Exam: SUBJECTIVE: Patient seen and examined at the bedside. Stated he is feeling better and denies any neurological symptoms. Denies dysarthria, dysphagia, facial droop, visual disturbances, numbness, tingling, focal weakness, cp, sob, abd pain, n/v/c/d, dizziness, lightheadedness, headaches. OBJECTIVE: Vital Signs Period Temp Pulse Resp BP Sys/Puentes Pulse Ox Last 24 Hr 97.7 F-98.2 F 81-88 18-20 163-178/75-117 95-99 GENERAL: The patient is awake, alert, and fully oriented, in no acute distress. HEAD: Normal with no signs of trauma. EYES: PERRL, extraocular movements intact, sclera anicteric, conjunctiva clear. ENT: Oropharynx clear without exudates, moist mucous membranes. NECK: Trachea midline, full range of motion, supple. LUNGS: Breath sounds equal, clear to auscultation bilaterally, no wheezes, no crackles, no accessory muscle use. HEART: Regular rate and rhythm, S1, S2 without murmur, rub. ABDOMEN: Soft, nontender, nondistended, normoactive bowel sounds, no guarding, no rebound, no masses. EXTREMITIES: 2+ pulses, warm, well-perfused, no edema. NEUROLOGICAL: Cranial nerves II through XII grossly intact. 5/5 muscle strength bilaterally upper and lower extremities. Sensation intact to gross touch throughout. Minor decrease to vibratory sense distally on the lower extremtities. 2/4 reflexes on the upper extremities bilaterally, 1/4 reflexes on the lower extremities bilaterally. Unsteady gait. PSYCH: Normal mood, normal affect. SKIN: Warm, dry, normal turgor, no rashes or lesions noted Laboratory Results - last 24 hr 11/09/19 11/09/19 11/09/19 18:00 18:00 18:00 WBC 7.8 RBC 4.41 Hgb 12.6 Hct 37.7 MCV 85.6 MCH 28.5 MCHC 33.3 RDW 14.0 Plt Count 235 MPV 8.8 Absolute Neuts (auto) 4.9 Neutrophils % 62.0 Lymphocytes % 23.6 Monocytes % 9.2 Eosinophils % 4.0 Basophils % 1.2 Nucleated RBC % 0 PT with INR 22.70 H INR 1.91 H Sodium 142 Potassium 3.8 Chloride 108 H Carbon Dioxide 27 Anion Gap 6 L BUN 18.7 H Creatinine 1.4 H Est GFR (CKD-EPI)AfAm 54.61 Est GFR (CKD-EPI)NonAf 47.12 POC Glucometer Random Glucose 130 H Hemoglobin A1c % Calcium 8.9 Total Bilirubin 0.3 AST 15 ALT 19 Alkaline Phosphatase 62 Creatine Kinase 86 Troponin I < 0.02 Total Protein 6.7 Albumin 3.8 Triglycerides Cholesterol Total LDL Cholesterol HDL Cholesterol Urine Color Urine Appearance Urine pH Ur Specific [place] Urine Protein Urine Glucose (UA) Urine Ketones Urine Blood Urine Nitrite Urine Bilirubin Urine Urobilinogen Ur Leukocyte Esterase 11/09/19 11/09/19 11/10/19 19:10 22:43 05:30 WBC 7.8 RBC 4.46 Hgb 12.8 Hct 38.2 MCV 85.7 MCH 28.8 MCHC 33.6 RDW 13.9 Plt Count 232 MPV 8.8 Absolute Neuts (auto) 5.1 Neutrophils % 65.6 Lymphocytes % 21.8 Monocytes % 7.9 Eosinophils % 3.6 Basophils % 1.1 Nucleated RBC % 0 PT with INR INR Sodium Potassium Chloride Carbon Dioxide Anion Gap BUN Creatinine Est GFR (CKD-EPI)AfAm Est GFR (CKD-EPI)NonAf POC Glucometer 112 Random Glucose Hemoglobin A1c % Calcium Total Bilirubin AST ALT Alkaline Phosphatase Creatine Kinase Troponin I Total Protein Albumin Triglycerides Cholesterol Total LDL Cholesterol HDL Cholesterol Urine Color Yellow Urine Appearance Clear Urine pH 5.0 Ur Specific [place] 1.015 Urine Protein Negative Urine Glucose (UA) Negative Urine Ketones Negative Urine Blood Negative Urine Nitrite Negative Urine Bilirubin Negative Urine Urobilinogen 0.2 Ur Leukocyte Esterase Negative 11/10/19 11/10/19 11/10/19 05:30 05:30 05:30 WBC RBC Hgb Hct MCV MCH MCHC RDW Plt Count MPV Absolute Neuts (auto) Neutrophils % Lymphocytes % Monocytes % Eosinophils % Basophils % Nucleated RBC % PT with INR 24.30 H INR 2.04 H Sodium 140 Potassium 3.8 Chloride 106 Carbon Dioxide 24 Anion Gap 9 BUN 18.4 H Creatinine 1.3 Est GFR (CKD-EPI)AfAm 59.73 Est GFR (CKD-EPI)NonAf 51.53 POC Glucometer Random Glucose 168 H Hemoglobin A1c % 6.6 H Calcium 9.2 Total Bilirubin 0.6 AST 13 L ALT 20 Alkaline Phosphatase 68 Creatine Kinase Troponin I 0.02 Total Protein 7.2 Albumin 4.0 Triglycerides 253 H Cholesterol 159 Total LDL Cholesterol 89 HDL Cholesterol 41 Urine Color Urine Appearance Urine pH Ur Specific [place] Urine Protein Urine Glucose (UA) Urine Ketones Urine Blood Urine Nitrite Urine Bilirubin Urine Urobilinogen Ur Leukocyte Esterase 11/10/19 11/10/19 05:53 11:58 WBC RBC Hgb Hct MCV MCH MCHC RDW Plt Count MPV Absolute Neuts (auto) Neutrophils % Lymphocytes % Monocytes % Eosinophils % Basophils % Nucleated RBC % PT with INR INR Sodium Potassium Chloride Carbon Dioxide Anion Gap BUN Creatinine Est GFR (CKD-EPI)AfAm Est GFR (CKD-EPI)NonAf POC Glucometer 171 129 Random Glucose Hemoglobin A1c % Calcium Total Bilirubin AST ALT Alkaline Phosphatase Creatine Kinase Troponin I Total Protein Albumin Triglycerides Cholesterol Total LDL Cholesterol HDL Cholesterol Urine Color Urine Appearance Urine pH Ur Specific [place] Urine Protein Urine Glucose (UA) Urine Ketones Urine Blood Urine Nitrite Urine Bilirubin Urine Urobilinogen Ur Leukocyte Esterase Active Medications Generic Name Dose Route Start Last Admin Trade Name Freq PRN Reason Stop Dose Admin Atorvastatin Calcium 80 mg 11/10/19 22:00 Lipitor - PO HS [facility] Finasteride 5 mg 11/10/19 10:00 11/10/19 10:21 Proscar - PO 5 mg DAILY [facility]EE[facility]KA Administration Furosemide 20 mg 11/10/19 10:00 11/10/19 10:21 Lasix - PO 20 mg DAILY [facility] Administration Insulin Aspart 1 vial 11/09/19 22:00 11/10/19 12:27 Novolog Vial Sliding Scale - SQ Not Given ACHS [facility] Protocol Montelukast Sodium 10 mg 11/10/19 22:00 Singulair - PO HS [facility] Non-Formulary Medication 100 mg 11/10/19 10:00 Ubidecarenone [Coq-10] PO DAILY [facility] Pantoprazole Sodium 40 mg 11/10/19 10:00 11/10/19 10:21 Protonix - PO 40 mg DAILY [facility] Administration Warfarin Sodium 6 mg 11/10/19 18:00 Coumadin - PO DAILY@1800 [facility] ASSESSMENT/PLAN: Miguelito Heller is an 79 year old male with a past medical history of HTN, HLD, DM2, DVT history 10 years ago (has been on coumadin since tis time), BPH, TAVR admitted after TIA. 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 Abreu, recs appreciated - cardiology consulted due to hx of TAVR - continue cardiac monitoring to evaluate for cardiac events - will likely need holter monitor - echo noting moderate LVH, EF 60-65%, mild aortic valvular stenosis, trace pulmonic regurg - continue coumadin - Lipitor 80mg daily - speech & swallow eval - physical therapy requested - will need outpatient neurology and cardiology f/u - previous records noting echo on 07/25/19: severe LVH, normal EF, atrial enlargement, aortic bioprosthesis with moderate aortic insufficiency, mild thickening of mitral valve leafelets, trace mitral regurg, trace pericardial effusion. No hx of afib Leg Pain - resolved - no DVT noted on duplex HTN - can restart home meds HLD - atorvastatin 80mg daily - advised low fat diet - auricular therapist consulted Diabetes mellitus 2 - holding home oral agents - ISS - BGMs ACHS BPH - continue home finasteride Chest CT noting pulmonary nodule - nodule stable since 2007 - will need pulmonary f/u PPX - on coumadin - GI: protonix 40mg daily FEN - no standing fluids - continue to monitor electrolytes and replete as necessary - sodium controlled, low fat diet Dispo - admit to stroke unit Visit type - Emergency Visit Emergency Visit: Yes ED Registration Date: 11/09/19 Care time: The patient presented to the Emergency Department on the above date and was hospitalized for further evaluation of their emergent condition. - New Patient This patient is new to me today: Yes Date on this admission: 11/10/19 - Critical Care Critical Care patient: No
[2019-11-10] MEDS: WARFARIN NA 3 MG TABLET PO SCH (18:37)
--- NOTE | 2019-11-10 18:42 | PN ---
Teaching Attending Note Name of Resident: Flynn Welch ATTENDING PHYSICIAN STATEMENT I saw and evaluated the patient. I reviewed the resident's note and discussed the case with the resident. I agree with the resident's findings and plan as documented. SUBJECTIVE: Patient is an 79yom stated that he experienced expressive aphasia that lasted for 10 minutes, by the time he called the daughter , patient was back to his normal speech. As per patient , he is on coumadin for over 10yrs, with recent [place] procedure and has a home INR machine, and reports the result to his MD. OBJECTIVE: Vital Signs Temperature 97.9 F 11/10/19 17:35 Pulse Rate 70 11/10/19 17:35 Respiratory Rate 16 11/10/19 17:35 Blood Pressure 154/79 11/10/19 17:35 O2 Sat by Pulse Oximetry (%) 93 L 11/10/19 17:35 GENERAL: The patient is awake, alert, and fully oriented, in no acute distress. HEAD: Normal with no signs of trauma. EYES: PERRL, extraocular movements intact, sclera anicteric, conjunctiva clear. ENT: Ears normal, oropharynx clear without exudates, moist mucous membranes. NECK: Trachea midline, full range of motion, supple. LUNGS: Breath sounds equal, clear to auscultation bilaterally, no wheezes, no crackles, no accessory muscle use. HEART: Regular rate and rhythm, S1, S2 +, SHAKILA 2/6 ,no rub or gallop. ABDOMEN: Soft, nontender, nondistended, normoactive bowel sounds, no guarding, no rebound, no hepatosplenomegaly, no masses. EXTREMITIES: 2+ pulses, warm, well-perfused, no edema. NEUROLOGICAL: Cranial nerves II through XII grossly intact. Normal speech, gait not observed. PSYCH: Normal mood, normal affect. SKIN: Warm, dry, normal turgor, no rashes or lesions noted CBCD WBC 7.8 K/mm3 (4.0-10.0) 11/10/19 05:30 RBC 4.46 M/mm3 (4.00-5.60) 11/10/19 05:30 Hgb 12.8 GM/dL (11.7-16.9) 11/10/19 05:30 Hct 38.2 % (35.4-49) 11/10/19 05:30 MCV 85.7 fl (80-96) 11/10/19 05:30 MCHC 33.6 g/dl (32.0-35.9) 11/10/19 05:30 RDW 13.9 % (11.9-15.9) 11/10/19 05:30 Plt Count 232 K/MM3 (134-434) 11/10/19 05:30 MPV 8.8 fl (7.5-11.1) 11/10/19 05:30 CMP Sodium 140 mmol/L (136-145) 11/10/19 05:30 Potassium 3.8 mmol/L (3.5-5.1) 11/10/19 05:30 Chloride 106 mmol/L (98-107) 11/10/19 05:30 Carbon Dioxide 24 mmol/L (21-32) 11/10/19 05:30 Anion Gap 9 MMOL/L (8-16) 11/10/19 05:30 BUN 18.4 mg/dL (7-18) H 11/10/19 05:30 Creatinine 1.3 mg/dL (0.55-1.3) 11/10/19 05:30 Random Glucose 168 mg/dL (74-106) H 11/10/19 05:30 Calcium 9.2 mg/dL (8.5-10.1) 11/10/19 05:30 Total Bilirubin 0.6 mg/dL (0.2-1) 11/10/19 05:30 AST 13 U/L (15-37) L 11/10/19 05:30 ALT 20 U/L (13-61) 11/10/19 05:30 Alkaline Phosphatase 68 U/L (45-117) 11/10/19 05:30 Total Protein 7.2 g/dl (6.4-8.2) 11/10/19 05:30 Albumin 4.0 g/dl (3.4-5.0) 11/10/19 05:30 CARDIAC ENZYMES Creatine Kinase 86 U/L (26-308) 11/09/19 18:00 Troponin I 0.02 ng/ml (0.00-0.05) 11/10/19 05:30 Current Medications Generic Name Dose Route Start Last Admin Trade Name Freq PRN Reason Stop Dose Admin Atorvastatin Calcium 80 mg 11/10/19 22:00 Lipitor - PO HS DEEPIKA Finasteride 5 mg 11/10/19 10:00 11/10/19 10:21 Proscar - PO 5 mg DAILY DEEPIKA Administration Furosemide 20 mg 11/10/19 10:00 11/10/19 10:21 Lasix - PO 20 mg DAILY DEEPIKA Administration Insulin Aspart 1 vial 11/09/19 22:00 11/10/19 18:26 Novolog Vial Sliding Scale - SQ Not Given ACHS [facility] Protocol Lisinopril 40 mg 11/11/19 10:00 Prinivil PO DAILY DEEPIKA Montelukast Sodium 10 mg 11/10/19 22:00 Singulair - PO HS DEEPIKA Non-Formulary Medication 100 mg 11/10/19 10:00 Ubidecarenone [Coq-10] PO DAILY DEEPIKA Pantoprazole Sodium 40 mg 11/10/19 10:00 11/10/19 10:21 Protonix - PO 40 mg DAILY DEEPIKA Administration Warfarin Sodium 6 mg 11/10/19 18:00 11/10/19 18:37 Coumadin - PO 6 mg DAILY@1800 DEEPIKA Administration Urine Test Results Urine Color Yellow 11/09/19 19:10 Urine Appearance Clear 11/09/19 19:10 Urine pH 5.0 (5.0-8.0) 11/09/19 19:10 Ur Specific Badin 1.015 (1.010-1.035) 11/09/19 19:10 Urine Protein Negative (NEGATIVE) 11/09/19 19:10 Urine Glucose (UA) Negative (NEGATIVE) 11/09/19 19:10 Urine Ketones Negative (NEGATIVE) 11/09/19 19:10 Urine Blood Negative (NEGATIVE) 11/09/19 19:10 Urine Nitrite Negative (NEGATIVE) 11/09/19 19:10 Urine Bilirubin Negative (NEGATIVE) 11/09/19 19:10 Ur Leukocyte Esterase Negative (NEGATIVE) 11/09/19 19:10 CT head shows no ischemic changes ECHO: moderate left concentric hypertrophy with EJF 60-65%, RIGHT VENTRICLE IS NORMAL IN SIZE AND FUNCTION, MILD VALVULAR AORTIC STENOSIS, TRACE PULMONIC VALVULAR REGURG. 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 BPH, TAVR presenting for TIA. 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 continue statin , warfarin, neuro on the case. # Hx of Tavrn , will get an echo , will place on monitor and check for any arrythmias, cardio consult dr ortiz #HTN uncontrolled continue home meds. Neuro on the case #HTN : continue home meds. #HLD: continue statin #T2Dm continue home meds. ISS, BGMs ACHS #BPH ; continue home finasteride DVT px: on coumadin 6mg GI Px: protonix 40mg daily in Tele
[2019-11-10 18:53] VITALS: BMI 35.6
--- NOTE | 2019-11-10 19:05 | CONSULT ---
Admitting History and Physical - Smoking History Smoking history: Former smoker Have you smoked in the past 12 months: No - Alcohol/Substance Use Hx Alcohol Use: No History - Admission Reason For Visit: TIA - Hearing Hearing: Impaired, Both Hearing Aide: Yes With Patient: No Speech Evaluation - Communication Primary Language: SYRIAC Communication: Yes: Within Normal Limits, Simple Responses, Aphasia (expressive but appears to have resolved) Oral Expression Ability: Yes: No Impairment - Speech Production Apraxia: No Able to Make Needs Known: Yes: WNL Intelligibility: Yes: WNL - Speech Characteristics Voice Loudness: Normal Voice Pitch: Yes: Normal Voice Phonatory-based Quality: Yes: Normal Speech Pattern: Normal Articulation: Yes: Precise Rate of Speech: Intact Voice Comment: Vocal quality is functional for the environment with speech parameters WNL. - Language/Auditory Comprehension Follows: Yes: 1 Stage Simple Commands (WFL), 2 Stage Simple Commands (WFL) Observation: Able to respond to yes/no queries: Yes, Yes/No Confusion: No, Comprehends Conversational Speech: Yes, Benefits from Slow Speech: No, Benefits from Repetiton: No, Benefits from Increased Volume of Speech: No - Language/Verbal Expression Able to Respond to Simple Queries: Yes: WNL Able to Communicate Wants and Needs: Yes: WNL Functional Communication Status: Yes: WNL Aware of Errors: Yes Attempts to Correct Errors: Yes Use of Gestures: Yes Written Expression: not examined Oral Expression: WFL Reading Comprehension: not examined Calculations: not examined Attention: Yes: Intact - Memory/Perception skilled nursing Memory: Yes: WNL Short Term Memory: Yes: WNL - Swallow Evaluation/Bedside Assessment Current Nutritional Intake: Regular, Thin Liquids Oral Secretions: Yes: WFL Tracheostomy Present: Yes Patient on Ventilator: Yes Dentition: Yes: Adequate Facial Symmetry at Rest: Symmetrical Facial Symmetry on Retraction: Symmetrical Facial Movement: Controlled Sensation: Normal Facial Comment: WF for speech and swallowing purposes Jaw Position: Closed at Rest Against Resistance Opening: Normal Against Resistance Closing: Normal Pucker Lips: Normal Smile: Normal Lips, Comment: WF for speech and swallowing purposes Lingual Movement: Normal Lingual Speed of Movement: Normal Lingual Movement Strgth Against Opposition: Normal Lingual Movement Characteristics: Normal Lingual Comment: WF for speech and swallowing purposes Soft Palate Description: Normal Color Hard Palate Description: Normal Color Gag Reflex: Strong Velopharyngeal Movement: Normal Laryngeal Elevation: WFL Laryngeal Movement: Able to Palpate Needs Assistance: No Rate of Intake: WFL Bolus Size: WFL Labial Seal: WFL Chewing: WFL Oral Prep Time: WFL A-P Transit: WFL Pocketing: None Timing of Swallow: WFL Odynophagia: Oral Coughing/Throat Clear: No Change in Voice: No Other Findings/Remarks: 79 y.o. M PMH HTN, HLD, DM2, DVT history 10 years ago (has been on coumadin since tis time), BPH, TAVR presenting s/p 10 minute episode of aphasia. The patient states this afternoon he was having severe sciatic pain which prompted him to call his PCP. While on the phone he became dysarthric w/ expressive aphasia--altered ability to produce language but clear comprehension. Although his dysarthria resolved he decided to come to the ED. On arrival to ED the patient is feeling well, no dysarthria, but forgetful of some words ( at bedside, says this is altered from his usual). Vocal quality is impaired characterized as strained, strident, hoarsen, with reduced intensity and pitch. Volitional airway protection (without bolus) and swallow is WNL. Hypothryriod elevation was present/strong to palpation of the anterior neck. Pt given PO trials of pureed, mechanical soft solids, regular with minimal assistance revealed, adequate bolus formation and A P transport with a timely pharyngeal swallow (1-2 second average). No change in voicing or respiration after the swallow. Thin liquids trials via cup and straw were unremarkable for dysphagia and / or aspiration at this time. Recommendations - Speech Evaluation, Impression/Plan Impression: The oral and pharyngeal swallow is adequate for po intake of regular solids and thin liquids. Labial containment, mastication, bolus transport, and initiation of swallow were WNL. No coughing or changes in voicing to suggest penetration / aspiration at bedside at this time. Speech and language are WFL. Hydramatic Specialist Goals: Tolerate the least restrictive solid and liquid consistencies without s/s of penetration / aspiration. Short Term Goals: Tolerate regular solids and thin liquid consistencies without s/s of penetration / aspiration. Recommended Frequency for Therapy: Follow Up PRN - Disposition Discharge to: To be Determined - Dysphagia Impressions/Plan Swallowing Skills: WFL Dysphagia Impressions: No Impairment Dysphagia Treatment Plan: Elevate HOB during feed, OOB for meals, OOB for 1 h. after meals Dysphagia Evaluation Summary: Continue po intake of regular solids and thin liquids at tolerated. Observe standard aspiration precautions. Results given verbally to furnace charger and PCP via chart. WOOL BROKER to follow up for diet tolerance. - Recommendations Diet Consistency: Regular, Dietary Restrictions/MD (sodium controlled) Medication Administration: Whole with water Liquids: Thin Liquids
[2019-11-10] MEDS ORDERED: ROSUVASTATIN CA 5 MG TABLET (FP) PO SCH (22:00)
[2019-11-10] MEDS ORDERED: ATORVASTATIN CA 80 MG TABLET (FP) PO SCH (22:00)
[2019-11-10] MEDS: MONTELUKAST NA 10 MG TABLET PO SCH (22:03)
[2019-11-11] MEDS: INSULIN SLIDING SCALE (NOVOLOG) 1 VIAL SQ SCH ×4 (06:57→21:39)
[2019-11-11 08:11] LABS: EOS % 4.8 % (0-4.5); HEMOGLOBIN 11.9 GM/dL (11.7-16.9); LYMPH % 27.9 % (8-40); MCH 28.3 pg (25.7-33.7); MEAN CELL VOLUME 85.7 fl (80-96); MEAN PLT VOLUME 8.7 fl (7.5-11.1); MONO % 9.6 % (3.8-10.2); NEUT % 56.7 % (42.8-82.8); PLATELET COUNT 221 K/MM3 (134-434); RDW 13.9 % (11.9-15.9); WHITE BLOOD COUNT 6.2 K/mm3 (4.0-10.0)
[2019-11-11 08:14] LABS: INR 2.29 (0.83-1.09); PROTHROMBIN TIME (PATIENT) 27.2 SEC (9.7-13.0)
--- NOTE | 2019-11-11 08:29 | PN ---
Progress Note (short form) - Note Progress Note: Neurology CHIEF COMPLAINT: dysarthria PCP: Physician @ [facility] HISTORY OF PRESENT ILLNESS: 79 y.o. M PMH HTN, HLD, DM2, DVT history 10 years ago (has been on coumadin since tis time), BPH, TAVR presented s/p 10 minute episode of aphasia. The patient stated on day of admission he was having severe sciatic pain which prompted him to call his PCP. While on the phone he became dysarthric w/ expressive aphasia--altered ability to produce language but clear comprehension. Although his dysarthria resolved he decided to come to the ED. On arrival to ED the patient was feeling well, no dysarthria, but forgetful of some words ( at bedside, said this is altered from his usual). NIHSS 1, for L lateral gaze deficit. The patient is compliant with all mediations and checks his INR weekly with home device. Head CT performed and showed no acute pathology. Carotid Ultrasound completed and demonstrated no evidence of carotid artery stenosis. MRI of brain reviewed and showed no evidence of acute or subacute infarction. 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 Discussed this in detail with patient and his daughter who is at bedside. He does not take a daily aspirin but is on anticoagulation. I be hesitant to add antiplatelet to his regimen at this point since he did not have a new infarct and is already on anticoagulation with increased risk of bleeding. Lipid profile reviewed, LDL 89, can be on low-dose statin. They were reassured that MRI was negative and that his speech is back to baseline. Lower extremity Dopplers reviewed and did not show evidence of DVT, discussed in detail. Echo completed and reviewed, discussed with patient and daughter at bedside. This morning patient with episode of speech disturbance, contacted by resident and discussed with him, awaiting repeat noncontrast head CT. Active Medications Atorvastatin Calcium (Lipitor -) 80 mg PO HS DEEPIKA Last Admin: 11/10/19 22:03 Dose: 80 mg Finasteride (Proscar -) 5 mg PO DAILY [facility] Last Admin: 11/10/19 10:21 Dose: 5 mg Furosemide (Lasix -) 20 mg PO DAILY [facility] Insulin Aspart (Novolog Vial Sliding Scale -) 1 vial SQ ACHS [facility]; Protocol Last Admin: 11/11/19 06:57 Dose: Not Given Lisinopril (Prinivil) 40 mg PO DAILY [facility] Montelukast Sodium (Singulair -) 10 mg PO HS [facility] Last Admin: 11/10/19 22:03 Dose: 10 mg Non-Formulary Medication (Ubidecarenone [Coq-10]) 100 mg PO DAILY [facility] Pantoprazole Sodium (Protonix -) 40 mg PO DAILY [facility] Last Admin: 11/10/19 10:21 Dose: 40 mg Warfarin Sodium (Coumadin -) 6 mg PO DAILY@1800 [facility] Last Admin: 11/10/19 18:37 Dose: 6 mg PHYSICAL EXAMINATION Vital Signs Period Temp Pulse Resp BP Sys/Puentes Pulse Ox Last 24 Hr 97.7 F-98.7 F 70-85 16-18 141-158/70-90 93-96 GENERAL: Awake, alert, and fully oriented, in no acute distress. HEENT: NCAT. No JVD. Sclera anicteric. LUNGS: Breath sounds equal, clear to auscultation bilaterally. No wheezes, and no crackles. No accessory muscle use. HEART: Regular rate and rhythm, normal S1 and S2 without murmurs. No carotid bruits. ABDOMEN: Soft, nontender, not distended, normoactive bowel sounds. EXTREMITIES: 2+ pulses, warm, well-perfused. No peripheral edema. NEUROLOGICAL: Cranial nerves II-XII intact.normal speech, no dysarthria or aphasia. Good handgrip strength. Motor 5/5 b/l UE & LE. Sensory intact b/l UE & LE. PSYCHIATRIC: Cooperative. Good eye contact. Appropriate mood and affect. SKIN: Warm, dry, normal turgor. CBCD WBC 6.2 K/mm3 (4.0-10.0) 11/11/19 06:15 RBC 4.20 M/mm3 (4.00-5.60) 11/11/19 06:15 Hgb 11.9 GM/dL (11.7-16.9) 11/11/19 06:15 Hct 36.0 % (35.4-49) 11/11/19 06:15 MCV 85.7 fl (80-96) 11/11/19 06:15 MCHC 33.0 g/dl (32.0-35.9) 11/11/19 06:15 RDW 13.9 % (11.9-15.9) 11/11/19 06:15 Plt Count 221 K/MM3 (134-434) 11/11/19 06:15 MPV 8.7 fl (7.5-11.1) 11/11/19 06:15 CMP Sodium 140 mmol/L (136-145) 11/10/19 05:30 Potassium 3.8 mmol/L (3.5-5.1) 11/10/19 05:30 Chloride 106 mmol/L (98-107) 11/10/19 05:30 Carbon Dioxide 24 mmol/L (21-32) 11/10/19 05:30 Anion Gap 9 MMOL/L (8-16) 11/10/19 05:30 BUN 18.4 mg/dL (7-18) H 11/10/19 05:30 Creatinine 1.3 mg/dL (0.55-1.3) 11/10/19 05:30 Random Glucose 168 mg/dL (74-106) H 11/10/19 05:30 Calcium 9.2 mg/dL (8.5-10.1) 11/10/19 05:30 Total Bilirubin 0.6 mg/dL (0.2-1) 11/10/19 05:30 AST 13 U/L (15-37) L 11/10/19 05:30 ALT 20 U/L (13-61) 11/10/19 05:30 Alkaline Phosphatase 68 U/L (45-117) 11/10/19 05:30 Total Protein 7.2 g/dl (6.4-8.2) 11/10/19 05:30 Albumin 4.0 g/dl (3.4-5.0) 11/10/19 05:30 CARDIAC ENZYMES Creatine Kinase 86 U/L (26-308) 11/09/19 18:00 Troponin I 0.02 ng/ml (0.00-0.05) 11/10/19 05:30 ASSESSMENT/PLAN: 79 y.o. M PMH HTN, HLD, DM2, DVT history 10 years ago (has been on coumadin since tis time), BPH, TAVR presented s/p 10 minute episode of aphasia. The patient stated on day of admission he was having severe sciatic pain which prompted him to call his PCP. While on the phone he became dysarthric w/ expressive aphasia--altered ability to produce language but clear comprehension. Although his dysarthria resolved he decided to come to the ED. On arrival to ED the patient was feeling well, no dysarthria, but forgetful of some words ( at bedside, said this is altered from his usual). NIHSS 1, for L lateral gaze deficit. The patient is compliant with all mediations and checks his INR weekly with home device. Head CT performed and showed no acute pathology. Carotid Ultrasound completed and demonstrated no evidence of carotid artery stenosis. MRI of brain reviewed and showed no evidence of acute or subacute infarction. 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 Discussed this in detail with patient and his daughter who is at bedside. He does not take a daily aspirin but is on anticoagulation. I be hesitant to add antiplatelet to his regimen at this point since he did not have a new infarct and is already on anticoagulation with increased risk of bleeding. Lipid profile reviewed, LDL 89, can be on low-dose statin. They were reassured that MRI was negative and that his speech is back to baseline. Lower extremity Dopplers reviewed and did not show evidence of DVT, discussed in detail. Echo completed and reviewed, discussed with patient and daughter at bedside. This morning patient with episode of speech disturbance, contacted by resident and discussed with him, awaiting repeat noncontrast head CT. Remains on anticoagulation for DVT, avoid falls or head trauma.
[2019-11-11 08:50] LABS: BLOOD UREA NITROGEN 19.2 mg/dL (7-18); CREATININE 1.4 mg/dL (0.55-1.3); MAGNESIUM 1.7 mg/dL (1.8-2.4)
[2019-11-11] MEDS ORDERED: MAGNESIUM SULF 50% (8.12 MEQ/2 ML-1 GM VIAL) IVPB ONE (08:52)
[2019-11-11] MEDS: PANTOPRAZOLE 40 MG TABLET PO SCH (09:01)
[2019-11-11] MEDS: FUROSEMIDE 20 MG TABLET (FP) PO SCH (09:01)
[2019-11-11] MEDS: LISINOPRIL 20 MG TABLET (FP) PO SCH (09:01)
[2019-11-11] MEDS: FINASTERIDE 5 MG TABLET (FP) PO SCH (09:01)
[2019-11-11] MEDS ORDERED: ATORVASTATIN CA 80 MG TABLET (FP) PO SCH ×2 (09:04→22:00)
--- NOTE | 2019-11-11 09:56 | CON.CARD ---
Consult Consult Specialty:: Cardiology Referred by:: Hospitalist Medicine Reason for Consultation:: Recurrent TIA despite therapeutic INR - History of Present Illness Chief Complaint: Recurrent aphasia History of Present Illness: Patient is an 79 yo severe s/p TAVR, HTN , DM, hyperlipidemia, DVT 10 years ago on chronic coumadin since then, BPH stated that he experienced expressive aphasia that lasted for 10 minutes, by the time he called the daughter, patient was back to his normal speech, denies other neurologic deficits, INR 1.91. As per patient, he is on coumadin for over 10yrs, reports compliance with meds and monitoring. Transient expressive aphasia recurred this AM, no changes on repeat HCT, INR now therapeutic 2.3. - History Source History Provided By: Patient Limitations to Obtaining History: No Limitations - Alcohol/Substance Use Hx Alcohol Use: No - Smoking History Smoking history: Former smoker Have you smoked in the past 12 months: No Home Medications - Allergies Allergies/Adverse Reactions: Allergies Allergy/AdvReac Type Severity Reaction Status Date / Time No Known Allergies Allergy Verified 11/09/19 16:54 - Home Medications Home Medications: Ambulatory Orders Finasteride 5 mg PO DAILY 11/09/19 Montelukast Na [Singulair -] 10 mg PO DAILY 11/09/19 Pantoprazole Sodium 40 mg PO DAILY 11/09/19 Ubidecarenone [Coq-10] 100 mg PO DAILY 11/09/19 Warfarin Sodium [Coumadin] 6 mg PO DAILY 11/09/19 metFORMIN HCL [Metformin ER Osmotic] 1,000 mg PO DAILY 11/09/19 Furosemide 20 mg PO DAILY 11/10/19 Lisinopril [Prinivil -] 40 mg PO DAILY 11/10/19 Atorvastatin Ca [Lipitor] 80 mg PO HS #30 tablet 11/11/19 Review of Systems - Review of Systems Neurological: reports: Change in Speech Vital Signs: Vital Signs Temperature 98.2 F 11/11/19 09:06 Pulse Rate 78 11/11/19 09:06 Respiratory Rate 18 11/11/19 09:06 Blood Pressure 152/88 11/11/19 09:06 O2 Sat by Pulse Oximetry (%) 96 11/10/19 21:00 Constitutional: Yes: No Distress, Calm Neck: Yes: Supple Respiratory: Yes: Regular, CTA Bilaterally Gastrointestinal: Yes: Normal Bowel Sounds, Soft Cardiovascular: Yes: Regular Rate and Rhythm JVD: No Carotid Bruit: No Heart Sounds: Yes: S1, S2 Murmur: Yes: Systolic Murmur, Grade 1 Edema: No - Other Data Labs, Other Data: CBC, BMP 11/11/19 06:15 11/11/19 06:15 INR, PTT INR 2.29 (0.83-1.09) H 11/11/19 06:15 NSR @ 72 IRBBB nonspec lateral T wave changes Prior Cardiac Procedures: Valve Surgery Ejection Fraction %: LVEF > or = 40 % Imaging - Results Chest X-ray: Report Reviewed (Left base ATX, right infrahilar nodule) Cat Scan: Report Reviewed (HCT negative x 2, chest CT: stable bilateral pulmonary nodules, dilated main pa c/w elevated PAP) Ultrasound: Report Reviewed (Carotid US: Negative stenosis) Problem List - Problems (1) S/P TAVR (transcatheter aortic valve replacement) Code(s): Z95.2 - PRESENCE OF PROSTHETIC HEART VALVE (2) Transient ischemic attack Code(s): G45.9 - TRANSIENT CEREBRAL ISCHEMIC ATTACK, UNSPECIFIED (3) Hypertensive heart disease Code(s): I11.9 - HYPERTENSIVE HEART DISEASE WITHOUT HEART FAILURE Qualifiers: Heart failure presence: without heart failure Qualified Code(s): I11.9 - Hypertensive heart disease without heart failure (4) Hyperlipidemia associated with type 2 diabetes mellitus Code(s): E11.69 - TYPE 2 DIABETES MELLITUS WITH OTHER SPECIFIED COMPLICATION; E78.5 - HYPERLIPIDEMIA, UNSPECIFIED Assessment/Plan MRI of brain showed no evidence of acute or subacute infarction. 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 CT head shows no ischemic changes Carotid Ultrasound demonstrated no evidence of carotid artery stenosis ECHO: moderate left concentric hypertrophy with EF 60-65%, RIGHT VENTRICLE IS NORMAL IN SIZE AND FUNCTION, MILD VALVULAR AORTIC STENOSIS, TRACE PULMONIC VALVULAR REGURG. ASSESSMENT AND PLAN: 1. 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 Severe s/p TAVR 3. Hypertensive heart disease 4. Hyperlipidemia 5. Type 2 DM 6. DVT on chronic coumadin per INR x 10 years 7. BPH P:1. Continue coumadin per INR 2-3, will add ASA 81 qd given recurrent TIA despite therapeutic INR 2. Continue Lipitor 80 qd with goal LDL<70, Lasix 20 qd, and lisinopril 40 qd 3. Review outpt records from Dr. Dhruv Haines [facility] [place] 4. Thank you for consultative opportunity
--- NOTE | 2019-11-11 11:40 | PN ---
Progress Note, TIE LAYER - Note Progress Note: Pt reported severe pain in left leg which cleared once speech difficulty started before admission. u/s (-) dvt. Pt reported recurrent, brief period of Dysarthria this morning c/w TIA. Presently speech, cognition, languager, swallowing are intact. Medical team aware.
[2019-11-11] MEDS ORDERED: INSULIN SLIDING SCALE (NOVOLOG) 1 VIAL SQ ONE (11:55)
[2019-11-11] MEDS ORDERED: ASPIRIN 81 MG CHEWABLE TABLETS PO ONE (11:59)
--- NOTE | 2019-11-11 13:07 | PN ---
Physical Exam: SUBJECTIVE: Patient seen and examined at the bedside. Patient stated that he was feeling well and stated he did not have any new symptoms. Denied cp, sob, abd pain, n/v/c/d, headaches, dizziness, lightheadedness, fever, chills, focal weakness, numbness, tingling. After completion of patient visit, this insurance underwriter sales was contacted by [employer] to reevaluate patient after family member and patient noted dysarthria. After arrival to the bedside, dysarthria was noted that was a change in status from previous examination. Dysarthria resolved in less than 10 minutes. OBJECTIVE: Vital Signs Period Temp Pulse Resp BP Sys/Puentes Pulse Ox Last 24 Hr 97.7 F-98.7 F 70-85 16-18 141-158/70-90 93-96 GENERAL: The patient is awake, alert, and fully oriented, in no acute distress. HEAD: Normal with no signs of trauma. EYES: PERRL, extraocular movements intact, sclera anicteric, conjunctiva clear. ENT: Oropharynx clear without exudates, moist mucous membranes. NECK: Trachea midline, full range of motion, supple. LUNGS: Breath sounds equal, clear to auscultation bilaterally, no wheezes, no crackles, no accessory muscle use. HEART: Regular rate and rhythm, S1, S2 without murmur, rub. ABDOMEN: Soft, nontender, nondistended, normoactive bowel sounds, no guarding, no rebound, no masses. EXTREMITIES: 2+ pulses, warm, well-perfused, no edema. NEUROLOGICAL: Cranial nerves II through XII grossly intact. 5/5 muscle strength bilaterally upper and lower extremities. Sensation intact to gross touch throughout. Minor decrease to vibratory sense distally on the lower extremtities. 2/4 reflexes on the upper extremities bilaterally, 1/4 reflexes on the lower extremities bilaterally. Unsteady gait. Mild dysarthria on second examination. PSYCH: Normal mood, normal affect. SKIN: Warm, dry, normal turgor, no rashes or lesions noted. Laboratory Results - last 24 hr 11/10/19 11/10/19 11/11/19 16:35 22:02 06:15 WBC 6.2 RBC 4.20 Hgb 11.9 Hct 36.0 MCV 85.7 MCH 28.3 MCHC 33.0 RDW 13.9 Plt Count 221 MPV 8.7 Absolute Neuts (auto) 3.5 Neutrophils % 56.7 Lymphocytes % 27.9 D Monocytes % 9.6 Eosinophils % 4.8 H Basophils % 1.0 Nucleated RBC % 0 PT with INR INR Sodium Potassium Chloride Carbon Dioxide Anion Gap BUN Creatinine Est GFR (CKD-EPI)AfAm Est GFR (CKD-EPI)NonAf POC Glucometer 176 132 Random Glucose Calcium Magnesium 11/11/19 11/11/19 11/11/19 06:15 06:15 06:37 WBC RBC Hgb Hct MCV MCH MCHC RDW Plt Count MPV Absolute Neuts (auto) Neutrophils % Lymphocytes % Monocytes % Eosinophils % Basophils % Nucleated RBC % PT with INR 27.20 H INR 2.29 H Sodium 141 Potassium 4.0 Chloride 108 H Carbon Dioxide 28 Anion Gap 5 L BUN 19.2 H Creatinine 1.4 H Est GFR (CKD-EPI)AfAm 54.61 Est GFR (CKD-EPI)NonAf 47.12 POC Glucometer 132 Random Glucose 134 H Calcium 9.0 Magnesium 1.7 L 11/11/19 12:00 WBC RBC Hgb Hct MCV MCH MCHC RDW Plt Count MPV Absolute Neuts (auto) Neutrophils % Lymphocytes % Monocytes % Eosinophils % Basophils % Nucleated RBC % PT with INR INR Sodium Potassium Chloride Carbon Dioxide Anion Gap BUN Creatinine Est GFR (CKD-EPI)AfAm Est GFR (CKD-EPI)NonAf POC Glucometer 136 Random Glucose Calcium Magnesium Active Medications Generic Name Dose Route Start Last Admin Trade Name Freq PRN Reason Stop Dose Admin Aspirin 81 mg 11/12/19 10:00 Asa - PO DAILY DEEPIKA Atorvastatin Calcium 40 mg 11/11/19 22:00 Lipitor - PO HS DEEPIKA Finasteride 5 mg 11/10/19 10:00 11/11/19 09:01 Proscar - PO 5 mg DAILY DEEPIKA Administration Furosemide 20 mg 11/11/19 10:00 11/11/19 09:01 Lasix - PO 20 mg DAILY DEEPIKA Administration Insulin Aspart 1 vial 11/09/19 22:00 11/11/19 12:01 Novolog Vial Sliding Scale - SQ Not Given ACHS DEEPIKA Protocol Lisinopril 40 mg 11/11/19 10:00 11/11/19 09:01 Prinivil PO 40 mg DAILY DEEPIKA Administration Montelukast Sodium 10 mg 11/10/19 22:00 11/10/19 22:03 Singulair - PO 10 mg HS DEEPIKA Administration Pantoprazole Sodium 40 mg 11/10/19 10:00 11/11/19 09:01 Protonix - PO 40 mg DAILY DEEPIKA Administration Warfarin Sodium 6 mg 11/10/19 18:00 11/10/19 18:37 Coumadin - PO 6 mg DAILY@1800 DEEPIKA Administration ASSESSMENT/PLAN: Miguelito Heller is an 79 year old male with a past medical history of HTN, HLD, DM2, DVT history 10 years ago (has been on coumadin since tis time), BPH, TAVR admitted after TIA. 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 Abreu, recs appreciated - cardiology consulted due to hx of TAVR, recs appreciated - continue cardiac monitoring to evaluate for cardiac events for additional 24 hours in setting of TIA like episode while hospitalized - will likely need holter monitor - echo noting moderate LVH, EF 60-65%, mild aortic valvular stenosis, trace pulmonic regurg - continue coumadin - Lipitor 80mg daily - aspirin 81mg daily - speech & swallow eval, recs noted - physical therapy requested - will need outpatient neurology and cardiology f/u - previous records noting echo on 07/25/19: severe LVH, normal EF, atrial enlargement, aortic bioprosthesis with moderate aortic insufficiency, mild thickening of mitral valve leafelets, trace mitral regurg, trace pericardial effusion. No hx of afib - obtain MRA of head and neck Leg Pain - resolved - no DVT noted on duplex HTN - can restart home meds HLD - atorvastatin 80mg daily - advised low fat diet - line palletizer consulted Diabetes mellitus 2 - holding home oral agents - ISS - BGMs ACHS BPH - continue home finasteride Chest CT noting pulmonary nodule - nodule stable since 2007 - will need pulmonary f/u PPX - on coumadin - GI: protonix 40mg daily FEN - no standing fluids - continue to monitor electrolytes and replete as necessary - sodium controlled, low fat diet Dispo - admit to stroke unit Visit type - Emergency Visit Emergency Visit: Yes ED Registration Date: 11/09/19 Care time: The patient presented to the Emergency Department on the above date and was hospitalized for further evaluation of their emergent condition. - New Patient This patient is new to me today: No - Critical Care Critical Care patient: No
[2019-11-11] MEDS: WARFARIN NA 3 MG TABLET PO SCH (17:39)
--- NOTE | 2019-11-11 20:25 | PN ---
Teaching Attending Note Name of Resident: Flynn Welch ATTENDING PHYSICIAN STATEMENT I saw and evaluated the patient. I reviewed the resident's note and discussed the case with the resident. I agree with the resident's findings and plan as documented. SUBJECTIVE: Events noted; patient had a similar episode as perm admission and resolved within 10 mins. daughter at bedside. No further events noted. Vital Signs Temperature 98.2 F 11/11/19 18:00 Pulse Rate 80 11/11/19 18:00 Respiratory Rate 20 11/11/19 18:00 Blood Pressure 152/80 11/11/19 18:00 O2 Sat by Pulse Oximetry (%) 96 11/11/19 09:00 GENERAL: The patient is awake, alert, and fully oriented, NAD, HEAD: Normal with no signs of trauma. EYES: PERRL, extraocular movements intact, sclera anicteric, conjunctiva clear. ENT: Ears normal, oropharynx clear without exudates, moist mucous membranes. NECK: Trachea midline, full range of motion, supple. LUNGS: Breath sounds equal, clear to auscultation bilaterally, no wheezes, no crackles, no accessory muscle use. HEART: Regular rate and rhythm, S1, S2 +, SHAKILA 2/6 ,no rub or gallop. ABDOMEN: Soft, NT,ND, normoactive bowel sounds, no guarding, no rebound, no hepatosplenomegaly, no masses. EXTREMITIES: 2+ pulses, warm, well-perfused, no edema. NEUROLOGICAL: Cranial nerves II through XII grossly intact. Normal speech, gait not observed. PSYCH: Normal mood, normal affect. SKIN: Warm, dry, normal turgor, no rashes or lesions noted CBCD WBC 6.2 K/mm3 (4.0-10.0) 11/11/19 06:15 RBC 4.20 M/mm3 (4.00-5.60) 11/11/19 06:15 Hgb 11.9 GM/dL (11.7-16.9) 11/11/19 06:15 Hct 36.0 % (35.4-49) 11/11/19 06:15 MCV 85.7 fl (80-96) 11/11/19 06:15 MCHC 33.0 g/dl (32.0-35.9) 11/11/19 06:15 RDW 13.9 % (11.9-15.9) 11/11/19 06:15 Plt Count 221 K/MM3 (134-434) 11/11/19 06:15 MPV 8.7 fl (7.5-11.1) 11/11/19 06:15 CMP Sodium 141 mmol/L (136-145) 11/11/19 06:15 Potassium 4.0 mmol/L (3.5-5.1) 11/11/19 06:15 Chloride 108 mmol/L (98-107) H 11/11/19 06:15 Carbon Dioxide 28 mmol/L (21-32) 11/11/19 06:15 Anion Gap 5 MMOL/L (8-16) L 11/11/19 06:15 BUN 19.2 mg/dL (7-18) H 11/11/19 06:15 Creatinine 1.4 mg/dL (0.55-1.3) H 11/11/19 06:15 Random Glucose 134 mg/dL (74-106) H 11/11/19 06:15 Calcium 9.0 mg/dL (8.5-10.1) 11/11/19 06:15 Total Bilirubin 0.6 mg/dL (0.2-1) 11/10/19 05:30 AST 13 U/L (15-37) L 11/10/19 05:30 ALT 20 U/L (13-61) 11/10/19 05:30 Alkaline Phosphatase 68 U/L (45-117) 11/10/19 05:30 Total Protein 7.2 g/dl (6.4-8.2) 11/10/19 05:30 Albumin 4.0 g/dl (3.4-5.0) 11/10/19 05:30 CARDIAC ENZYMES Creatine Kinase 86 U/L (26-308) 11/09/19 18:00 Troponin I 0.02 ng/ml (0.00-0.05) 11/10/19 05:30 Current Medications Generic Name Dose Route Start Last Admin Trade Name Freq PRN Reason Stop Dose Admin Aspirin 81 mg 11/12/19 10:00 Asa - PO DAILY [facility] Atorvastatin Calcium 40 mg 11/11/19 22:00 Lipitor - PO HS DEEPIKA Finasteride 5 mg 11/10/19 10:00 11/11/19 09:01 Proscar - PO 5 mg DAILY DEEPIKA Administration Furosemide 20 mg 11/11/19 10:00 11/11/19 09:01 Lasix - PO 20 mg DAILY DEEPIKA Administration Insulin Aspart 1 vial 11/09/19 22:00 11/11/19 17:39 Novolog Vial Sliding Scale - SQ Not Given ACHS DEEPIKA Protocol Lisinopril 40 mg 11/11/19 10:00 11/11/19 09:01 Prinivil PO 40 mg DAILY DEEPIKA Administration Montelukast Sodium 10 mg 11/10/19 22:00 11/10/19 22:03 Singulair - PO 10 mg HS DEEPIKA Administration Pantoprazole Sodium 40 mg 11/10/19 10:00 11/11/19 09:01 Protonix - PO 40 mg DAILY DEEPIKA Administration Warfarin Sodium 6 mg 11/10/19 18:00 11/11/19 17:39 Coumadin - PO 6 mg DAILY@1800 DEEPIKA Administration Urine Test Results Urine Color Yellow 11/09/19 19:10 Urine Appearance Clear 11/09/19 19:10 Urine pH 5.0 (5.0-8.0) 11/09/19 19:10 Ur Specific [place] 1.015 (1.010-1.035) 11/09/19 19:10 Urine Protein Negative (NEGATIVE) 11/09/19 19:10 Urine Glucose (UA) Negative (NEGATIVE) 11/09/19 19:10 Urine Ketones Negative (NEGATIVE) 11/09/19 19:10 Urine Blood Negative (NEGATIVE) 11/09/19 19:10 Urine Nitrite Negative (NEGATIVE) 11/09/19 19:10 Urine Bilirubin Negative (NEGATIVE) 11/09/19 19:10 Ur Leukocyte Esterase Negative (NEGATIVE) 11/09/19 19:10 CT head shows no ischemic changes ECHO: moderate left concentric hypertrophy with EJF 60-65%, RIGHT VENTRICLE IS NORMAL IN SIZE AND FUNCTION, MILD VALVULAR AORTIC STENOSIS, TRACE PULMONIC VALVULAR REGURG. 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 BPH, TAVR presenting for TIA. #Acute TIA x2 with hx of chronic lacunar infarct posterior aspect of the left centrum semioval as per MRI report. continue statin , warfarin, neuro on the case. discussed with cardio, will add ecotrin 81mg daily, ordered head and neck MRA # Hx of Tavrn , Echo: moderate concentric left ventricular hypertrophy with EJF= 60-65%, THE RIGHT ventricle is normal, mild valvular , trace pulmonic valvular regurgitation, will continue to monitor him and check for any arrythmias, cardio consult dr ortiz appreciated. #HTN uncontrolled continue home meds. Neuro on the case #HTN : continue home meds. #HLD: continue statin #T2Dm continue home meds. ISS, BGMs ACHS #BPH : continue home finasteride DVT px: on coumadin 6mg GI Px: protonix 40mg daily in Tele
[2019-11-11] MEDS: MONTELUKAST NA 10 MG TABLET PO SCH (21:42)
[2019-11-12] MEDS: INSULIN SLIDING SCALE (NOVOLOG) 1 VIAL SQ SCH ×2 (06:54→11:36)
[2019-11-12 07:01] LABS: EOS % 4.1 % (0-4.5); HEMATOCRIT 36.4 % (35.4-49); HEMOGLOBIN 12.4 GM/dL (11.7-16.9); LYMPH % 23.4 % (8-40); MCH 28.8 pg (25.7-33.7); MCHC 33.9 g/dl (32.0-35.9); MEAN CELL VOLUME 85.1 fl (80-96); MEAN PLT VOLUME 8.6 fl (7.5-11.1); MONO % 9.7 % (3.8-10.2); NEUT % 61.8 % (42.8-82.8); PLATELET COUNT 223 K/MM3 (134-434); RBC 4.28 M/mm3 (4.00-5.60); RDW 13.7 % (11.9-15.9); WHITE BLOOD COUNT 7.1 K/mm3 (4.0-10.0)
[2019-11-12 07:11] LABS: INR 1.85 (0.83-1.09)
[2019-11-12 07:33] LABS: CALCIUM 9.2 mg/dL (8.5-10.1); CREATININE 1.4 mg/dL (0.55-1.3); MAGNESIUM 1.9 mg/dL (1.8-2.4); POTASSIUM 4.4 mmol/L (3.5-5.1)
[2019-11-12] MEDS ORDERED: WARFARIN NA 3 MG TABLET PO SCH (08:09)
[2019-11-12] MEDS: PANTOPRAZOLE 40 MG TABLET PO SCH (09:46)
[2019-11-12] MEDS: LISINOPRIL 20 MG TABLET (FP) PO SCH (09:46)
[2019-11-12] MEDS: FUROSEMIDE 20 MG TABLET (FP) PO SCH (09:46)
[2019-11-12] MEDS: FINASTERIDE 5 MG TABLET (FP) PO SCH (09:46)
[2019-11-12] MEDS ORDERED: ASPIRIN 81 MG CHEWABLE TABLETS PO SCH (10:00)
--- NOTE | 2019-11-12 10:56 | PN ---
Progress Note (short form) - Note Progress Note: Neurology CHIEF COMPLAINT: dysarthria PCP: Physician @ [facility] HISTORY OF PRESENT ILLNESS: 79 y.o. M PMH HTN, HLD, DM2, DVT history 10 years ago (has been on coumadin since tis time), BPH, TAVR presented s/p 10 minute episode of aphasia. The patient stated on day of admission he was having severe sciatic pain which prompted him to call his PCP. While on the phone he became dysarthric w/ expressive aphasia--altered ability to produce language but clear comprehension. Although his dysarthria resolved he decided to come to the ED. On arrival to ED the patient was feeling well, no dysarthria, but forgetful of some words ( at bedside, said this is altered from his usual). NIHSS 1, for L lateral gaze deficit. The patient is compliant with all mediations and checks his INR weekly with home device. Head CT performed and showed no acute pathology. Carotid Ultrasound completed and demonstrated no evidence of carotid artery stenosis. MRI of brain reviewed and showed no evidence of acute or subacute infarction. 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 Discussed this in detail with patient and his daughter who is at bedside. He does not take a daily aspirin but is on anticoagulation. I be hesitant to add antiplatelet to his regimen at this point since he did not have a new infarct and is already on anticoagulation with increased risk of bleeding. Lipid profile reviewed, LDL 89, can be on low-dose statin. They were reassured that MRI was negative and that his speech is back to baseline. Lower extremity Dopplers reviewed and did not show evidence of DVT, discussed in detail. Echo completed and reviewed, discussed with patient and daughter at bedside. Due to recurrence of speech difficulty, repeat head ct completed and indicated moderate atrophy no gross evidence of intracranial lesion or hemorrhage. BRAIN/NECK MRA completed, no internal carotid artery stenosis, patent extracranial vertebral arteries, no evidence of large vessel stenosis or occlusion. Started on ASA 81mg by cardiology, will defer regarding antiplatelet. Discussed results of above with daughter and patient. Likely for discharge today and reports being at baseline. Active Medications Aspirin (Asa -) 81 mg PO DAILY [facility] Last Admin: 11/12/19 09:46 Dose: 81 mg Atorvastatin Calcium (Lipitor -) 40 mg PO HS [facility] Last Admin: 11/11/19 21:42 Dose: 40 mg Finasteride (Proscar -) 5 mg PO DAILY [facility] Last Admin: 11/12/19 09:46 Dose: 5 mg Furosemide (Lasix -) 20 mg PO DAILY [facility] Last Admin: 11/12/19 09:46 Dose: 20 mg Insulin Aspart (Novolog Vial Sliding Scale -) 1 vial SQ [facility]; Protocol Last Admin: 11/12/19 06:54 Dose: Not Given Lisinopril (Prinivil) 40 mg PO DAILY [facility] Last Admin: 11/12/19 09:46 Dose: 40 mg Montelukast Sodium (Singulair -) 10 mg PO HS [facility] Last Admin: 11/11/19 21:42 Dose: 10 mg Pantoprazole Sodium (Protonix -) 40 mg PO DAILY [facility] Last Admin: 11/12/19 09:46 Dose: 40 mg Warfarin Sodium 5 mg/ Warfarin (Sodium 2 mg) 7 mg PO DAILY@1800 [facility] PHYSICAL EXAMINATION Vital Signs Period Temp Pulse Resp BP Sys/Puentes Pulse Ox Last 24 Hr 97.6 F-98.3 F 70-90 16-20 138-152/71-80 96 GENERAL: Awake, alert, and fully oriented, in no acute distress. HEENT: NCAT. No JVD. Sclera anicteric. LUNGS: Breath sounds equal, clear to auscultation bilaterally. No wheezes, and no crackles. No accessory muscle use. HEART: Regular rate and rhythm, normal S1 and S2 without murmurs. No carotid bruits. ABDOMEN: Soft, nontender, not distended, normoactive bowel sounds. EXTREMITIES: 2+ pulses, warm, well-perfused. No peripheral edema. NEUROLOGICAL: Cranial nerves II-XII intact.normal speech, no dysarthria or aphasia. Good handgrip strength. Motor 5/5 b/l UE & LE. Sensory intact b/l UE & LE. PSYCHIATRIC: Cooperative. Good eye contact. Appropriate mood and affect. SKIN: Warm, dry, normal turgor. CBCD WBC 7.1 K/mm3 (4.0-10.0) 11/12/19 06:13 RBC 4.28 M/mm3 (4.00-5.60) 11/12/19 06:13 Hgb 12.4 GM/dL (11.7-16.9) 11/12/19 06:13 Hct 36.4 % (35.4-49) 11/12/19 06:13 MCV 85.1 fl (80-96) 11/12/19 06:13 MCHC 33.9 g/dl (32.0-35.9) 11/12/19 06:13 RDW 13.7 % (11.9-15.9) 11/12/19 06:13 Plt Count 223 K/MM3 (134-434) 11/12/19 06:13 MPV 8.6 fl (7.5-11.1) 11/12/19 06:13 CMP Sodium 141 mmol/L (136-145) 11/12/19 06:13 Potassium 4.4 mmol/L (3.5-5.1) 11/12/19 06:13 Chloride 108 mmol/L (98-107) H 11/12/19 06:13 Carbon Dioxide 27 mmol/L (21-32) 11/12/19 06:13 Anion Gap 6 MMOL/L (8-16) L 11/12/19 06:13 BUN 21.0 mg/dL (7-18) H 11/12/19 06:13 Creatinine 1.4 mg/dL (0.55-1.3) H 11/12/19 06:13 Random Glucose 144 mg/dL (74-106) H 11/12/19 06:13 Calcium 9.2 mg/dL (8.5-10.1) 11/12/19 06:13 Total Bilirubin 0.6 mg/dL (0.2-1) 11/10/19 05:30 AST 13 U/L (15-37) L 11/10/19 05:30 ALT 20 U/L (13-61) 11/10/19 05:30 Alkaline Phosphatase 68 U/L (45-117) 11/10/19 05:30 Total Protein 7.2 g/dl (6.4-8.2) 11/10/19 05:30 Albumin 4.0 g/dl (3.4-5.0) 11/10/19 05:30 CARDIAC ENZYMES Creatine Kinase 86 U/L (26-308) 11/09/19 18:00 Troponin I 0.02 ng/ml (0.00-0.05) 11/10/19 05:30 ASSESSMENT/PLAN: 79 y.o. M PMH HTN, HLD, DM2, DVT history 10 years ago (has been on coumadin since tis time), BPH, TAVR presented s/p 10 minute episode of aphasia. The patient stated on day of admission he was having severe sciatic pain which prompted him to call his PCP. While on the phone he became dysarthric w/ expressive aphasia--altered ability to produce language but clear comprehension. Although his dysarthria resolved he decided to come to the ED. On arrival to ED the patient was feeling well, no dysarthria, but forgetful of some words ( at bedside, said this is altered from his usual). NIHSS 1, for L lateral gaze deficit. The patient is compliant with all mediations and checks his INR weekly with home device. Head CT performed and showed no acute pathology. Carotid Ultrasound completed and demonstrated no evidence of carotid artery stenosis. MRI of brain reviewed and showed no evidence of acute or subacute infarction. 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 Discussed this in detail with patient and his daughter who is at bedside. He does not take a daily aspirin but is on anticoagulation. I be hesitant to add antiplatelet to his regimen at this point since he did not have a new infarct and is already on anticoagulation with increased risk of bleeding. Lipid profile reviewed, LDL 89, can be on low-dose statin. They were reassured that MRI was negative and that his speech is back to baseline. Lower extremity Dopplers reviewed and did not show evidence of DVT, discussed in detail. Echo completed and reviewed, discussed with patient and daughter at bedside. Due to recurrence of speech difficulty, repeat head ct completed and indicated moderate atrophy no gross evidence of intracranial lesion or hemorrhage. BRAIN/NECK MRA completed, no internal carotid artery stenosis, patent extracranial vertebral arteries, no evidence of large vessel stenosis or occlusion. Started on ASA 81mg by cardiology, will defer regarding antiplatelet. Discussed results of above with daughter and patient. Likely for discharge today and reports being at baseline. Advised outpatient followup in 2 weeks, information provided.
--- NOTE | 2019-11-12 11:10 | PN ---
Progress Note (short form) - Note Progress Note: Chief Complaint: Events noted, notes reviewed, no recurrent neurologic deficits reported, denies any chest discomfort or dyspnea History of Present Illness: Seen and examined on telemetry. 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 pathology to be considered in the differential diagnosis, possible focal seizures Medications: Current Medications Aspirin (Asa -) 81 mg PO DAILY [facility] Last Admin: 11/12/19 09:46 Dose: 81 mg Atorvastatin Calcium (Lipitor -) 40 mg PO [facility] Last Admin: 11/11/19 21:42 Dose: 40 mg Finasteride (Proscar -) 5 mg PO DAILY [facility] Last Admin: 11/12/19 09:46 Dose: 5 mg Furosemide (Lasix -) 20 mg PO DAILY [facility] Last Admin: 11/12/19 09:46 Dose: 20 mg Insulin Aspart (Novolog Vial Sliding Scale -) 1 vial SQ [facility]; Protocol Last Admin: 11/12/19 06:54 Dose: Not Given Lisinopril (Prinivil) 40 mg PO DAILY [facility] Last Admin: 11/12/19 09:46 Dose: 40 mg Montelukast Sodium (Singulair -) 10 mg PO [facility] Last Admin: 11/11/19 21:42 Dose: 10 mg Pantoprazole Sodium (Protonix -) 40 mg PO DAILY [facility] Last Admin: 11/12/19 09:46 Dose: 40 mg Warfarin Sodium 5 mg/ Warfarin (Sodium 2 mg) 7 mg PO DAILY@1800 [facility] Review of Systems - Review of Systems Constitutional: denies: Chills, Fever Cardiovascular: As noted above Respiratory: denies: Cough or Sputum Production Gastrointestinal: denies: Nausea, Vomiting, Diarrhea, Constipation or Abdominal Pain Neurological: denies: Headaches Vital Signs: Last Vital Signs Temp Pulse Resp BP Pulse Ox 98.0 F 90 17 143/75 96 11/12/19 08:30 11/12/19 08:30 11/12/19 08:30 11/12/19 08:30 11/11/19 21:00 Intake & Output 11/09/19 11/10/19 11/11/19 11/12/19 23:59 23:59 23:59 23:59 Intake Total 320 870 120 Balance 320 870 120 Weight 276 lb 270 lb 270 lb Neck: Supple Negative JVD No Bruit Respiratory: Clear bilaterally Cardiovascular: S1 S2 Regular Rate and Rhythm Gastrointestinal: Soft Benign Normal Bowel Sounds Ext: Negative Edema Labs: CBC, BMP 11/12/19 06:13 11/12/19 06:13 Hepatic Panel Total Bilirubin 0.6 mg/dL (0.2-1) 11/10/19 05:30 AST 13 U/L (15-37) L 11/10/19 05:30 ALT 20 U/L (13-61) 11/10/19 05:30 Alkaline Phosphatase 68 U/L (45-117) 11/10/19 05:30 Albumin 4.0 g/dl (3.4-5.0) 11/10/19 05:30 INR, PTT INR 1.85 (0.83-1.09) H 11/12/19 06:13 Assessment/Plan ASSESSMENT: 1. Questionable recurrent TIA, history of chronic/old lacunar infarct 2. Severe post TAVR 3. Hypertensive heart disease 4. DM 5. Hyperlipidemia 6. DVT on chronic Coumadin therapy as per INR (maintain 2-3) 7. BPH PLAN: 1. Continue Coumadin as per INR (maintain 2-3) and ASA with caution 2. Continue Lisinopril 3. Continue Lipitor 4. Continue Lasix 5. Can be D/C home form the cardiovascular point of view and F/U with Cardiology /Dr. Vanita Haines and his neurologist for further evaluation and management of the above noted presentation- additional cardiovascular evaluation if TIA still a suspect would include JUAN, extended monitor (see above discussion) Shelly Jiang M.D.
--- NOTE | 2019-11-12 12:26 | DS ---
Physical Exam: SUBJECTIVE: Patient seen and examined Patient stated that he placed the coumadin dose on the table and forgot to take it last night and that why the level is 1.85. OBJECTIVE: Vital Signs Temperature 98.0 F 11/12/19 08:30 Pulse Rate 90 11/12/19 08:30 Respiratory Rate 17 11/12/19 08:30 Blood Pressure 143/75 11/12/19 08:30 O2 Sat by Pulse Oximetry (%) 96 11/11/19 21:00 PHYSICAL EXAM GENERAL: The patient is awake, alert, and fully oriented, NAD, HEAD: Normal with no signs of trauma. EYES: PERRL, extraocular movements intact, sclera anicteric, conjunctiva clear. ENT: Ears normal, oropharynx clear without exudates, moist mucous membranes. NECK: Trachea midline, full range of motion, supple. LUNGS: Breath sounds equal, clear to auscultation bilaterally, no wheezes, no crackles, no accessory muscle use. HEART: Regular rate and rhythm, S1, S2 +, SHAKILA 2/6 ,no rub or gallop. ABDOMEN: Soft, NT,ND, normoactive bowel sounds, no guarding, no rebound, no hepatosplenomegaly, no masses. EXTREMITIES: 2+ pulses, warm, well-perfused, no edema. NEUROLOGICAL: Cranial nerves II through XII grossly intact. Normal speech, no further aphasic episode PSYCH: Normal mood, normal affect. SKIN: Warm, dry, normal turgor, no rashes or lesions noted CBCD WBC 7.1 K/mm3 (4.0-10.0) 11/12/19 06:13 RBC 4.28 M/mm3 (4.00-5.60) 11/12/19 06:13 Hgb 12.4 GM/dL (11.7-16.9) 11/12/19 06:13 Hct 36.4 % (35.4-49) 11/12/19 06:13 MCV 85.1 fl (80-96) 11/12/19 06:13 MCHC 33.9 g/dl (32.0-35.9) 11/12/19 06:13 RDW 13.7 % (11.9-15.9) 11/12/19 06:13 Plt Count 223 K/MM3 (134-434) 11/12/19 06:13 MPV 8.6 fl (7.5-11.1) 11/12/19 06:13 CMP Sodium 141 mmol/L (136-145) 11/12/19 06:13 Potassium 4.4 mmol/L (3.5-5.1) 11/12/19 06:13 Chloride 108 mmol/L (98-107) H 11/12/19 06:13 Carbon Dioxide 27 mmol/L (21-32) 11/12/19 06:13 Anion Gap 6 MMOL/L (8-16) L 11/12/19 06:13 BUN 21.0 mg/dL (7-18) H 11/12/19 06:13 Creatinine 1.4 mg/dL (0.55-1.3) H 11/12/19 06:13 Random Glucose 144 mg/dL (74-106) H 11/12/19 06:13 Calcium 9.2 mg/dL (8.5-10.1) 11/12/19 06:13 Total Bilirubin 0.6 mg/dL (0.2-1) 11/10/19 05:30 AST 13 U/L (15-37) L 11/10/19 05:30 ALT 20 U/L (13-61) 11/10/19 05:30 Alkaline Phosphatase 68 U/L (45-117) 11/10/19 05:30 Total Protein 7.2 g/dl (6.4-8.2) 11/10/19 05:30 Albumin 4.0 g/dl (3.4-5.0) 11/10/19 05:30 CARDIAC ENZYMES Creatine Kinase 86 U/L (26-308) 11/09/19 18:00 Troponin I 0.02 ng/ml (0.00-0.05) 11/10/19 05:30 Current Medications Generic Name Dose Route Start Last Admin Trade Name Freq PRN Reason Stop Dose Admin Aspirin 81 mg 11/12/19 10:00 11/12/19 09:46 Asa - PO 81 mg DAILY DEEPIKA Administration Atorvastatin Calcium 40 mg 11/11/19 22:00 11/11/19 21:42 Lipitor - PO 40 mg HS DEEPIKA Administration Finasteride 5 mg 11/10/19 10:00 11/12/19 09:46 Proscar - PO 5 mg DAILY DEEPIKA Administration Furosemide 20 mg 11/11/19 10:00 11/12/19 09:46 Lasix - PO 20 mg DAILY DEEPIKA Administration Insulin Aspart 1 vial 11/09/19 22:00 11/12/19 11:36 Novolog Vial Sliding Scale - SQ 2 units ACHS [facility] Administration Protocol Lisinopril 40 mg 11/11/19 10:00 11/12/19 09:46 Prinivil PO 40 mg DAILY DEEPIKA Administration Montelukast Sodium 10 mg 11/10/19 22:00 11/11/19 21:42 Singulair - PO 10 mg HS [facility] Administration Pantoprazole Sodium 40 mg 11/10/19 10:00 11/12/19 09:46 Protonix - PO 40 mg DAILY [facility] Administration Warfarin Sodium 5 mg/ Warfarin 7 mg 11/12/19 18:00 Sodium 2 mg PO DAILY@1800 [facility] Home Medications Medication Instructions Recorded Finasteride 5 mg PO DAILY 11/09/19 Montelukast Na [Singulair -] 10 mg PO DAILY 11/09/19 Pantoprazole Sodium 40 mg PO DAILY 11/09/19 Ubidecarenone [Coq-10] 100 mg PO DAILY 11/09/19 Warfarin Sodium [Coumadin] 6 mg PO DAILY 11/09/19 metFORMIN HCL [Metformin ER 1,000 mg PO DAILY 11/09/19 Osmotic] Furosemide 20 mg PO DAILY 11/10/19 Lisinopril [Prinivil -] 40 mg PO DAILY 11/10/19 Aspirin [ASA -] 81 mg PO DAILY tablet 11/12/19 Rosuvastatin [Crestor -] 10 mg PO HS #30 tablet 11/12/19 Warfarin Na [Coumadin -] 6 mg PO DAILY@1800 tablet 11/12/19 Urine Test Results Urine Color Yellow 11/09/19 19:10 Urine Appearance Clear 11/09/19 19:10 Urine pH 5.0 (5.0-8.0) 11/09/19 19:10 Ur Specific [place] 1.015 (1.010-1.035) 11/09/19 19:10 Urine Protein Negative (NEGATIVE) 11/09/19 19:10 Urine Glucose (UA) Negative (NEGATIVE) 11/09/19 19:10 Urine Ketones Negative (NEGATIVE) 11/09/19 19:10 Urine Blood Negative (NEGATIVE) 11/09/19 19:10 Urine Nitrite Negative (NEGATIVE) 11/09/19 19:10 Urine Bilirubin Negative (NEGATIVE) 11/09/19 19:10 Ur Leukocyte Esterase Negative (NEGATIVE) 11/09/19 19:10 CT head shows no ischemic changes ECHO: moderate left concentric hypertrophy with EJF 60-65%, RIGHT VENTRICLE IS NORMAL IN SIZE AND FUNCTION, MILD VALVULAR AORTIC STENOSIS, TRACE PULMONIC VALVULAR REGURG. MRA of the head and neck: reviewed and was negative HOSPITAL COURSE: Date of Admission:11/09/19 Date of Discharge: 11/12/19 Patient is an 79yo male with PMhx of HTN, HLD, DM2, with 10y hx of DVT on coumadin x 10yrs. BPH, TAVR presenting for TIA. 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 MRA of the neck and head was nl studies, patient can go home as per neuro and cardiology with f/u visit. continue statin , warfarin, neuro on the case, discussed with cardio, will send the patient on ecotrin 81mg daily. discussed with the patient and the daughter. Hx of Tavrn , Echo: moderate concentric left ventricular hypertrophy with EJF= 60-65%, THE RIGHT ventricle is normal, mild valvular , trace pulmonic valvular regurgitation, will continue to monitor him and check for any arrythmias, cardio consult dr angel dennis. #HTN uncontrolled continue home meds. #HTN : continue home meds. #HLD: continue statin #T2Dm continue home meds. ISS, BGMs ACHS #BPH : continue home finasteride DVT px: on coumadin 6mg GI Px: protonix 40mg daily follow up with the neurologist this Thursday is he suggests that he needs to continue ECaSA to contine and check with your photographic supervisor. outpatient EEG if possible JUAN if possible or as per recommendation of your photographic supervisor Minutes to complete discharge: 40 Discharge Summary Problems reviewed: Yes Reason For Visit: TIA Current Active Problems Hyperlipidemia associated with type 2 diabetes mellitus (Chronic) Hypertensive heart disease (Chronic) S/P TAVR (transcatheter aortic valve replacement) (Chronic) Condition: Stable - Instructions Diet, Activity, Other Instructions: You were admitted after you had a brief episode of slurred speech and inability to talk. You had a head CT which did not show any acute events. You had an MRI which showed an old stroke but no new strokes. You had a scan of your carotid arteries which did not show any blockages. You had an echocardiogram ( ultrasound of the heart) which showed en enlargement of the heart, normal function of the heart. You are advised to follow up with your photographic supervisor regarding these findings. Your photographic supervisor may recommend to keep you on a Holter monitor (a heart monitor to track your heart rhythm for an extended period of time). You had a scan of your legs which did not show any clots. You had a scan of your chest which showed that you have lung nodules which are stable since a previous scan in 2007. You are advised to follow up with a engine designer regarding these findings. MEDICATIONS continue taking rosuvastatin 10mg, increased the dose from 5mg to 10mg START taking enteric coated aspirin 81mg once daily till you see you photographic supervisor and neurologist. EEG if suggested by the neurologist Trans esophageal echo of the heart if suggested by your photographic supervisor. Continue to take all of your home medications as prescribed. REFERRALS Please follow up with your primary care provider, Dr. Beverly, within 1 week. Please follow up with the photographic supervisor, Dr. Haines, within 1 week. Please follow up with the neurologist, Dr. Arroyo, within 1 week. Please follow up with the engine designer, Dr. Cuevas, within 2 weeks. SPECIAL INSTRUCTIONS Please follow up with your physicians. If you have any symptoms of weakness, numbness, visual changes, slurred speech, difficulty walking, falls, chest pain, shortness of breath, fever, or any other general feelings of unwellness, please call 911 or go to your nearest emergency room. Referrals: Kyree Cuevas MD [Staff Physician] - 2 Weeks Flynn Beverly [Primary Care Provider] - 1 Week Dawson Arroyo [Non Staff, Medical] - 11/14/19 Dhruv Haines [Non Staff, Medical] - 1 Week Lina Frias MD [Staff Physician] - 1 Week Disposition: HOME - Home Medications Comprehensive Discharge Medication List: Ambulatory Orders Finasteride 5 mg PO DAILY 11/09/19 Montelukast Na [Singulair -] 10 mg PO DAILY 11/09/19 Pantoprazole Sodium 40 mg PO DAILY 11/09/19 Ubidecarenone [Coq-10] 100 mg PO DAILY 11/09/19 Warfarin Sodium [Coumadin] 6 mg PO DAILY 11/09/19 metFORMIN HCL [Metformin ER Osmotic] 1,000 mg PO DAILY 11/09/19 Furosemide 20 mg PO DAILY 11/10/19 Lisinopril [Prinivil -] 40 mg PO DAILY 11/10/19 Aspirin [ASA -] 81 mg PO DAILY tablet 11/12/19 Rosuvastatin [Crestor -] 10 mg PO HS #30 tablet 11/12/19 Warfarin Na [Coumadin -] 6 mg PO DAILY@1800 tablet 11/12/19 This patient is new to me today: No Emergency Visit: Yes ED Registration Date: 11/09/19 Care time: The patient presented to the Emergency Department on the above date and was hospitalized for further evaluation of their emergent condition. Critical Care patient: No - Discharge Referral Referred to [facility] Med P.C.: No
[2019-11-12 14:12] VITALS: BP 157/77; PULSE 94; TEMP 98.7
[2019-11-12] MEDS ORDERED: WARFARIN NA 5 MG, WARFARIN NA 2 MG PO SCH (18:00)
== END 2019-11-12 13:35 | disposition home or self-care (01) | DRG 69 ==
LOC: JER 16:43 → JERBED 19:13 → J4S 11-10 18:32
PROVIDERS: ADMIT Internal Medicine; ATTEND Internal Medicine
DX: G45.9 Transient cerebral ischemic attack, unspecified (principal); Z86.73 Personal history of transient ischemic attack (TIA), and cerebral infarction without residual deficits; E11.9 Type 2 diabetes mellitus without complications; N40.0 Benign prostatic hyperplasia without lower urinary tract symptoms; E78.5 Hyperlipidemia, unspecified; Z95.2 Presence of prosthetic heart valve; I11.9 Hypertensive heart disease without heart failure; E66.9 Obesity, unspecified; Z68.35 Body mass index [BMI] 35.0-35.9, adult
CPT/HCPCS: 36415; 70450-TC; 70544-TC; 70547-TC; 70551-TC; 71045-TC-FY; 71250-TC; 80048; 80053; 80061; 81003; 82550; 82962; 83036; 83721; 83735; 84484; 85025; 85610; 93005; 93010; 93306-TC; 93880-TC; 93970-TC; 97116-GP; 97161-GP; 99285-25

== ENCOUNTER 2023-02-02 14:11 | Observation (INO) | payer OTHER, BC ==
[2023-02-02 14:27] VITALS: RESP 18
[2023-02-02 15:40] LABS: INR 1.57 (0.83-1.09); PROTHROMBIN TIME (PATIENT) 18.1 SEC (9.7-13.0)
[2023-02-02 15:42] LABS: ACTIVATED PTT 19.9 SECONDS (25.2-36.5)
[2023-02-02 15:53] LABS: POTASSIUM 5.1 mmol/L (3.5-5.1)
[2023-02-02 15:54] LABS: MAGNESIUM 1.3 mg/dL (1.8-2.4)
[2023-02-02 15:55] LABS: ALBUMIN 3.4 g/dl (3.4-5.0); CALCIUM 9.4 mg/dL (8.5-10.1)
[2023-02-02 15:58] LABS: CREATININE 1.7 mg/dL (0.55-1.3)
[2023-02-02 16:00] LABS: BILIRUBIN,TOTAL 0.6 mg/dL (0.2-1); TOT PROT 6.7 g/dl (6.4-8.2)
[2023-02-02] MEDS ORDERED: SODIUM CHLORIDE 0.9% 500 ML INFUS.BAG IV ONE (16:24)
[2023-02-02 17:27] LABS: BASO % 1.4 % (0-2.0); EOS % 2.3 % (0-4.5); HEMOGLOBIN 12.2 GM/dL (11.7-16.9); LYMPH % 17.8 % (8-40); MCH 28.9 pg (25.7-33.7); MEAN CELL VOLUME 84.8 fl (80-96); MEAN PLT VOLUME 8.8 fl (7.5-11.1); NEUT % 70.5 % (42.8-82.8); PLATELET COUNT 238 10^3/uL (134-434); RBC 4.24 M/mm3 (4.00-5.60); WHITE BLOOD COUNT 8.5 K/mm3 (4.0-10.0)
[2023-02-02 17:49] LABS: URINE APPEARANCE CLEAR; URINE BILIRUBIN NEGATIVE (NEGATIVE); URINE COLOR YELLOW; URINE GLUCOSE (UA) NEGATIVE (NEGATIVE); URINE KETONE NEGATIVE (NEGATIVE); URINE LEUK ESTERASE NEGATIVE (NEGATIVE); URINE NITRITE NEGATIVE (NEGATIVE); URINE PROTEIN NEGATIVE (NEGATIVE); URINE UROBILINOGEN 0.2 mg/dL (0.2-1.0)
[2023-02-02] MEDS ORDERED: MAGNESIUM 2GM/50ML STERILE WATER IVPB IVPB ONE (21:45)
[2023-02-02] MEDS ORDERED: MAGNESIUM SULFATE IN WATER 2 GM/50 ML IVPB IVPB ONE (21:55)
[2023-02-02] MEDS ORDERED: ROSUVASTATIN CA 5 MG TABLET PO SCH (22:00)
[2023-02-02 23:49] LABS: N-TERMINAL BNP 890.6 pg/ml (5-450)
[2023-02-03 00:28] VITALS: BMI 36.7
[2023-02-03] MEDS: POLYETHYLENE GLYCOL (HEALTHYLAX) 3350 17 GM PACKET PO SCH ×2 (06:11→14:01)
[2023-02-03] MEDS: INSULIN SLIDING SCALE (NOVOLOG) 1 VIAL SQ SCH ×3 (06:16→17:16)
[2023-02-03] MEDS ORDERED: INSULIN SLIDING SCALE (NOVOLOG) 1 VIAL SQ SCH (07:00)
[2023-02-03 07:25] LABS: EOS % 3.6 % (0-4.5); HEMATOCRIT 33.2 % (35.4-49); HEMOGLOBIN 11.2 GM/dL (11.7-16.9); INR 1.89 (0.83-1.09); MCH 28.6 pg (25.7-33.7); MCHC 33.8 g/dl (32.0-35.9); MEAN CELL VOLUME 84.7 fl (80-96); MEAN PLT VOLUME 8.7 fl (7.5-11.1); MONO % 9.2 % (3.8-10.2); NEUT % 63.2 % (42.8-82.8); PLATELET COUNT 227 10^3/uL (134-434); PROTHROMBIN TIME (PATIENT) 21.8 SEC (9.7-13.0); RBC 3.92 M/mm3 (4.00-5.60); RDW 14.1 % (11.9-15.9); WHITE BLOOD COUNT 7.2 K/mm3 (4.0-10.0)
[2023-02-03 07:51] LABS: CHOLESTEROL 140 mg/dL (50-200)
[2023-02-03 07:52] LABS: LDL CHOLESTEROL (ONLY SJRH) 76 mg/dL (5-100)
[2023-02-03 07:54] LABS: HDL CHOLESTEROL 33 mg/dL (40-60)
[2023-02-03 08:29] LABS: CHLORIDE 108 mmol/L (98-107); POTASSIUM 4.4 mmol/L (3.5-5.1); SODIUM 141 mmol/L (136-145)
[2023-02-03 08:31] LABS: CALCIUM 8.9 mg/dL (8.5-10.1)
[2023-02-03 08:32] LABS: ALBUMIN 3.3 g/dl (3.4-5.0); ANION GAP 5 MMOL/L (8-16); BLOOD UREA NITROGEN 20.8 mg/dL (7-18); CO2 29 mmol/L (21-32); GLUCOSE,RANDOM 158 mg/dL (74-106); MAGNESIUM 1.8 mg/dL (1.8-2.4)
[2023-02-03 08:35] LABS: CREATININE 1.5 mg/dL (0.55-1.3); PHOSPHOROUS 3.2 mg/dL (2.5-4.9); SGOT/AST 12 U/L (15-37); SGPT/ALT 16 U/L (13-61)
[2023-02-03 08:36] LABS: BILIRUBIN,TOTAL 0.6 mg/dL (0.2-1); TOT PROT 6.2 g/dl (6.4-8.2)
[2023-02-03 08:38] LABS: ALK PHOS 65 U/L (45-117)
[2023-02-03] MEDS ORDERED: MAGNESIUM SULF 50% (8.12 MEQ/2 ML-1 GM VIAL) IVPB ONE (09:16)
[2023-02-03] MEDS ORDERED: FUROSEMIDE 40 MG/4 ML INJECTABLE VIAL IVPUSH ONE (09:57)
[2023-02-03] MEDS ORDERED: LISINOPRIL 20 MG TABLET PO SCH (10:00)
[2023-02-03] MEDS ORDERED: ASPIRIN 81 MG CHEWABLE TABLETS PO SCH (10:00)
[2023-02-03] MEDS ORDERED: PATIENT'S OWN MEDICATION (NON-FORMULARY) (Ubidecarenone [Coq-10] 100 MG Capsule) PO SCH (10:00)
[2023-02-03] MEDS ORDERED: metoPROLOL SUCCINATE 25 MG TAB.SR.24H (FP) PO SCH (10:00)
[2023-02-03] MEDS ORDERED: PANTOPRAZOLE 40 MG TABLET PO SCH (10:00)
[2023-02-03] MEDS ORDERED: FINASTERIDE 5 MG TABLET (FP) PO SCH (10:00)
[2023-02-03] MEDS ORDERED: FUROSEMIDE 20 MG TABLET (FP) PO SCH (10:00)
[2023-02-03 14:33] VITALS: BP 154/75; PULSE 80; TEMP 98
[2023-02-03] MEDS ORDERED: WARFARIN NA 2 MG TABLET ONE (17:53)
[2023-02-03] MEDS ORDERED: WARFARIN NA 5 MG, WARFARIN NA 2 MG PO SCH (18:00)
[2023-02-03] MEDS ORDERED: WARFARIN NA 3 MG TABLET PO SCH ×2 (18:00)
== END 2023-02-03 19:03 | disposition home or self-care (01) ==
LOC: JER 14:11 → INTOOBSV 17:55 → JERBED 17:55 → J4S 23:44
PROVIDERS: ADMIT Internal Medicine; ATTEND Internal Medicine
PROC: 3E033NZ Introduction of Analgesics, Hypnotics, Sedatives into Peripheral Vein, Percutaneous Approach (ICD-10-PCS; principal; 2023-02-02)
PROC: 3E013VG Introduction of Insulin into Subcutaneous Tissue, Percutaneous Approach (ICD-10-PCS; 2023-02-02)
PROC: 3E033GC Introduction of Other Therapeutic Substance into Peripheral Vein, Percutaneous Approach (ICD-10-PCS; 2023-02-02)
DX: I48.91 Unspecified atrial fibrillation (principal); R01.1 Cardiac murmur, unspecified; I10 Essential (primary) hypertension; E78.5 Hyperlipidemia, unspecified; N40.0 Benign prostatic hyperplasia without lower urinary tract symptoms; I82.402 Acute embolism and thrombosis of unspecified deep veins of left lower extremity
CPT/HCPCS: 0241U-QW; 36415; 71045-TC-FY; 76775-TC; 80053; 80061; 81003; 82550; 82570; 82962; 83036; 83735; 83880; 84100; 84156; 84300; 84443; 84484; 84540; 85025; 85610; 85730; 86850; 86900; 86901; 87086; 93005; 93010; 93306-TC; 96372; 96374; 96375; 97116-GP; 97162-GP; 99285-25; G0378

== ENCOUNTER 2023-03-31 12:36 | Emergency (ER) | payer OTHER, BC ==
[2023-03-31 12:45] VITALS: BP 183/62; PULSE 67; RESP 20; TEMP 98.3; BMI 38.2
== END 2023-03-31 19:01 | disposition home or self-care (01) ==
LOC: JER 12:36
DX: R22.41 Localized swelling, mass and lump, right lower limb (principal)
CPT/HCPCS: 93970-TC; 99284-25

== ENCOUNTER 2024-04-20 18:11 | Inpatient (IN) | payer OTHER, BC ==
[2024-04-20 19:37] LABS: BASO % 1.2 % (0-2.0); HEMATOCRIT 37.5 % (35.4-49); HEMOGLOBIN 12.2 GM/dL (11.7-16.9); LYMPH % 18.9 % (8-40); MCH 27.8 pg (25.7-33.7); MCHC 32.4 g/dl (32.0-35.9); MEAN CELL VOLUME 85.9 fl (80-96); MONO % 7.4 % (3.8-10.2); NEUT % 66.5 % (42.8-82.8); PLATELET COUNT 278 10^3/uL (134-434); RBC 4.37 M/mm3 (4.00-5.60); WHITE BLOOD COUNT 8.5 K/mm3 (4.0-10.0)
[2024-04-20 19:45] LABS: INR 1.95 (0.83-1.09)
[2024-04-20 19:47] LABS: ACTIVATED PTT 36.7 SECONDS (25.2-36.5)
[2024-04-20 19:58] LABS: POTASSIUM 4.3 mmol/L (3.5-5.1)
[2024-04-20 20:01] LABS: ALBUMIN 3.2 g/dl (3.4-5.0); MAGNESIUM 1.6 mg/dL (1.8-2.4)
[2024-04-20 20:04] LABS: CREATININE 1.6 mg/dL (0.55-1.3)
[2024-04-20 20:05] LABS: BILIRUBIN,TOTAL 0.3 mg/dL (0.2-1)
[2024-04-20 20:06] LABS: TOT PROT 6.3 g/dl (6.4-8.2)
[2024-04-20] MEDS ORDERED: MAGNESIUM SULFATE IN WATER 2 GM/50 ML IVPB IVPB ONE (21:52)
[2024-04-20] MEDS: MAGNESIUM SULFATE IN WATER 2 GM/50 ML IVPB IVPB ONE (21:57)
[2024-04-21 05:23] VITALS: BMI 37.0
[2024-04-21 07:32] LABS: BASO % 0.8 % (0-2.0); EOS % 4.3 % (0-4.5); HEMATOCRIT 35.9 % (35.4-49); HEMOGLOBIN 11.9 GM/dL (11.7-16.9); LYMPH % 13.8 % (8-40); MCH 28.4 pg (25.7-33.7); MCHC 33.1 g/dl (32.0-35.9); MEAN CELL VOLUME 85.7 fl (80-96); MEAN PLT VOLUME 8.3 fl (7.5-11.1); MONO % 7.7 % (3.8-10.2); NEUT % 73.4 % (42.8-82.8); PLATELET COUNT 270 10^3/uL (134-434); RBC 4.19 M/mm3 (4.00-5.60); WHITE BLOOD COUNT 10.8 K/mm3 (4.0-10.0)
[2024-04-21 07:45] LABS: POTASSIUM 4.9 mmol/L (3.5-5.1)
[2024-04-21 07:48] LABS: ALBUMIN 3.4 g/dl (3.4-5.0); BLOOD UREA NITROGEN 22.9 mg/dL (7-18); MAGNESIUM 1.9 mg/dL (1.8-2.4)
[2024-04-21 07:50] LABS: CREATININE 1.5 mg/dL (0.55-1.3)
[2024-04-21 07:52] LABS: BILIRUBIN,TOTAL 0.8 mg/dL (0.2-1); TOT PROT 6.5 g/dl (6.4-8.2)
[2024-04-21] MEDS: LISINOPRIL 20 MG TABLET PO SCH (09:35)
[2024-04-21] MEDS: metoPROLOL SUCCINATE 25 MG TAB.SR.24H (FP) PO SCH (09:36)
[2024-04-21] MEDS: PANTOPRAZOLE 40 MG TABLET PO SCH (09:36)
[2024-04-21] MEDS: FINASTERIDE 5 MG TABLET (FP) PO SCH (09:36)
[2024-04-21] MEDS: FUROSEMIDE 20 MG TABLET (FP) PO SCH (09:36)
[2024-04-21] MEDS: ASPIRIN COATED 81 MG TABLET.EC PO SCH (09:36)
[2024-04-21 10:39] LABS: INR 2.15 (0.83-1.09); PROTHROMBIN TIME (PATIENT) 23.8 SEC (9.7-13.0)
[2024-04-21] MEDS: oxyCODONE HCL 5 MG TABLET PO PRN (14:28)
[2024-04-21] MEDS ORDERED: WARFARIN NA 1 MG TABLET PO SCH (18:00)
[2024-04-21] MEDS: WARFARIN NA 3 MG TABLET PO SCH (18:36)
[2024-04-21] MEDS: DOCUSATE SODIUM 100 MG CAPSULE (FP) PO SCH (21:30)
[2024-04-21] MEDS: ROSUVASTATIN CA 5 MG TABLET PO SCH (21:30)
[2024-04-22] MEDS: ACETAMINOPHEN 325 MG TABLET (FP) PO PRN (08:33)
[2024-04-22 09:06] LABS: INR 2.25 (0.83-1.09); PROTHROMBIN TIME (PATIENT) 25.3 SEC (9.7-13.0)
[2024-04-22 09:07] LABS: BASO % 1.2 % (0-2.0); EOS % 4.9 % (0-4.5); HEMATOCRIT 34.3 % (35.4-49); HEMOGLOBIN 11.2 GM/dL (11.7-16.9); LYMPH % 19.1 % (8-40); MCH 27.7 pg (25.7-33.7); MCHC 32.7 g/dl (32.0-35.9); MEAN CELL VOLUME 84.7 fl (80-96); MEAN PLT VOLUME 8.3 fl (7.5-11.1); MONO % 8.1 % (3.8-10.2); NEUT % 66.7 % (42.8-82.8); PLATELET COUNT 265 10^3/uL (134-434); RBC 4.05 M/mm3 (4.00-5.60); RDW 13.9 % (11.9-15.9); WHITE BLOOD COUNT 8.2 K/mm3 (4.0-10.0)
[2024-04-22 09:26] LABS: POTASSIUM 4.5 mmol/L (3.5-5.1)
[2024-04-22 09:29] LABS: ALBUMIN 3.2 g/dl (3.4-5.0); BLOOD UREA NITROGEN 21.9 mg/dL (7-18); CALCIUM 8.9 mg/dL (8.5-10.1); MAGNESIUM 1.8 mg/dL (1.8-2.4)
[2024-04-22 09:32] LABS: CREATININE 1.5 mg/dL (0.55-1.3)
[2024-04-22 09:34] LABS: BILIRUBIN,TOTAL 1.3 mg/dL (0.2-1); TOT PROT 6.1 g/dl (6.4-8.2)
[2024-04-22 15:56] VITALS: RESP 18
[2024-04-23] MEDS ORDERED: traMADol HCL 50 MG TABLET PO PRN (08:41)
[2024-04-23 09:10] LABS: BASO % 1.1 % (0-2.0); EOS % 5.8 % (0-4.5); HEMATOCRIT 35.3 % (35.4-49); HEMOGLOBIN 11.7 GM/dL (11.7-16.9); LYMPH % 21.4 % (8-40); MCH 27.7 pg (25.7-33.7); MCHC 33.2 g/dl (32.0-35.9); MEAN CELL VOLUME 83.6 fl (80-96); MEAN PLT VOLUME 8.4 fl (7.5-11.1); MONO % 8.9 % (3.8-10.2); NEUT % 62.8 % (42.8-82.8); PLATELET COUNT 279 10^3/uL (134-434); RBC 4.22 M/mm3 (4.00-5.60); RDW 14.2 % (11.9-15.9); WHITE BLOOD COUNT 7.6 K/mm3 (4.0-10.0)
[2024-04-23] MEDS: LIDOCAINE 4% PATCH TP SCH (09:21)
[2024-04-23 09:27] LABS: POTASSIUM 4.7 mmol/L (3.5-5.1)
[2024-04-23 09:37] LABS: CALCIUM 9.3 mg/dL (8.5-10.1)
[2024-04-23 09:38] LABS: ALBUMIN 3.2 g/dl (3.4-5.0); MAGNESIUM 1.9 mg/dL (1.8-2.4)
[2024-04-23 09:39] LABS: CREATININE 1.5 mg/dL (0.55-1.3)
[2024-04-23 09:41] LABS: BILIRUBIN,TOTAL 0.5 mg/dL (0.2-1); TOT PROT 6.2 g/dl (6.4-8.2)
[2024-04-23 10:14] LABS: INR 2.25 (0.83-1.09); PROTHROMBIN TIME (PATIENT) 25.3 SEC (9.7-13.0)
[2024-04-23 11:38] VITALS: BP 175/65; PULSE 75; TEMP 98.8
[2024-04-23] MEDS ORDERED: LIDOCAINE PATCH REMOVAL MC SCH (22:00)
== END 2024-04-23 11:51 | DRG 552 ==
LOC: JER 18:11 → JERBED 23:24 → J8W 04-21 05:08
PROVIDERS: ADMIT Internal Medicine; ATTEND Internal Medicine
DX: M48.061 Spinal stenosis, lumbar region without neurogenic claudication (principal); E78.5 Hyperlipidemia, unspecified; N40.0 Benign prostatic hyperplasia without lower urinary tract symptoms; M21.371 Foot drop, right foot; I12.9 Hypertensive chronic kidney disease with stage 1 through stage 4 chronic kidney disease, or unspecified chronic kidney disease; N18.9 Chronic kidney disease, unspecified; Z95.2 Presence of prosthetic heart valve; E11.22 Type 2 diabetes mellitus with diabetic chronic kidney disease
CPT/HCPCS: 36415; 70450-TC; 71045-TC-FY; 72125-TC; 72131-TC; 72170-TC-FY; 73502-TC-RT-FY; 80053; 83735; 84100; 85025; 85610; 85730; 87635; 93005; 93010; 97116-GP; 97161-GP; 99285-25